=== PATIENT | male | born 1950 | race Caucasian/White ===

== ENCOUNTER → 2017-12-28 06:04 | Outpatient (CLI) | payer MEDICARE, BC, SELFPAY ==
--- NOTE | 2017-12-28 12:52 | STRESSREP ---
Stress Test Report Pharmacologic myocardial perfusion stress test. 67-year-old man with a history of coronary artery disease. Stress protocol: Resting EKG demonstrates normal sinus rhythm with rate of 73 bpm premature atrial complexes are noted. Resting blood pressure is 108/70 mmHg. 0.4 mg regadenoson was infused per usual protocol followed by rapid intravenous saline flush injection continuous EKG monitoring was performed. At rest there were no ST or T-wave changes noted suggest abnormal flow reserve at peak infusion no ST or T-wave changes were noted suggest abnormal flow reserve occasional premature ventricular complexes were noted. The maximum heart rate was 93 beats minute which was 60% maximum predicted heart rate the maximum workload attained was 1 metabolic equivalent. The resting blood pressure is 108/70 with a final blood pressure 118/70 mmHg. Myocardial perfusion protocol.: 14.8 mCi of technetium 99m sestamibi was injected at rest. 0.4 mg of regadenoson was infused per usual protocol peak infusion 44.9 mCi of technetium 99m sestamibi was injected stress images were obtained stress and rest images were reconstructed and compared in the short axis vertical long horizontal long axis. Gated images were also obtained Perfusion SPECT analysis: Review of the stress images demonstrate normal uptake of tracer noted in the septum anterior wall lateral and inferior wall. The apex has mildly reduced perfusion on the stress and rest images to a similar extent no areas of reversibility are noted suggest ischemia. Gated SPECT analysis: The gated ejection fraction is noted to be 66%. Conclusion: Normal pharmacologic myocardial perfusion stress test. Preserved ejection fraction.
== END ==
PROVIDERS: Family Provider Family Medicine; PCP Family Medicine; Visit Provider Physician Assistant Medical
DX: I25.10 Atherosclerotic heart disease of native coronary artery without angina pectoris (principal); I48.91 Unspecified atrial fibrillation
CPT/HCPCS: 78452; 93017; A9500; A4216; J2785

== ENCOUNTER → 2018-01-24 20:00 | Outpatient (CLI) | payer MEDICARE, BC, SELFPAY | PROVIDERS: Family Provider Family Medicine; PCP Family Medicine; Visit Provider Internal Medicine Cardiovascular Disease | DX: G47.10 Hypersomnia, unspecified (principal) | CPT/HCPCS: 95810 ==

== ENCOUNTER → 2018-02-21 21:06 | Outpatient (CLI) | payer MEDICARE, BC, SELFPAY | PROVIDERS: Family Provider Family Medicine; PCP Family Medicine; Visit Provider Nurse Practitioner Acute Care | DX: G47.33 Obstructive sleep apnea (adult) (pediatric) (principal) | CPT/HCPCS: 95811 ==

== ENCOUNTER → 2018-05-31 08:53 | Outpatient (CLI) | payer MEDICARE, BC, SELFPAY ==
[2018-05-31 10:52] LABS: Anion Gap 9 (5-15); BUN 19 mg/dL (7-18); BUN/Creat Ratio 16.1 RATIO (10-20); Calcium,Total 9.2 mg/dL (8.5-10.1); Chloride 108 mmol/L (98-107); Cholesterol 128 mg/dL (200); Creatinine, Serum 1.18 mg/dL (0.70-1.30); EST Glomerular Filtration Rate 65 mL/min (>60); Est Glom Filt Rate - Afr Amer 79 mL/min (>60); Glucose 91 mg/dL (74-106); High Density Lipoprotein 35 mg/dL; Potassium 4.2 mmol/L (3.5-5.1); Sodium Level 141 mmol/L (136-145); Triglycerides 70 mg/dL; Very Low Density Lipoprotein 14 mg/dL (5-40)
== END ==
PROVIDERS: Family Provider Family Medicine; PCP Family Medicine; Visit Provider Family Medicine
DX: E78.00 Pure hypercholesterolemia, unspecified (principal); I10 Essential (primary) hypertension
CPT/HCPCS: 36415; 80048; 80061

== ENCOUNTER → 2018-12-14 08:26 | Outpatient (CLI) | payer MEDICARE, BC, SELFPAY ==
[2018-11-07 08:07] VITALS: BMI 29.5
[2018-12-14 10:34] LABS: Anion Gap 9 (5-15); BUN 22 mg/dL (7-18); Chloride 107 mmol/L (98-107); Cholesterol 140 mg/dL (200); EST Glomerular Filtration Rate 71 mL/min (>60); Est Glom Filt Rate - Afr Amer 85 mL/min (>60); Glucose 93 mg/dL (74-106); High Density Lipoprotein 40 mg/dL; PSA,Total - Annual Screen 1.35 ng/mL (0.00-4.00); Potassium 4.3 mmol/L (3.5-5.1); Sodium Level 143 mmol/L (136-145); Triglycerides 73 mg/dL; Very Low Density Lipoprotein 15 mg/dL (5-40)
== END ==
PROVIDERS: Family Provider Family Medicine; PCP Family Medicine; Referring Provider Family Medicine; Visit Provider Family Medicine
DX: I10 Essential (primary) hypertension (principal); E78.5 Hyperlipidemia, unspecified; Z12.5 Encounter for screening for malignant neoplasm of prostate
CPT/HCPCS: 36415; 80048; 80061; 84153; G0103

== ENCOUNTER → 2019-06-13 08:43 | Outpatient (CLI) | payer MEDICARE, BC, SELFPAY ==
[2018-12-31 10:28] VITALS: BMI 28.8
[2019-06-13 10:51] LABS: Anion Gap 5 (5-15); BUN 17 mg/dL (7-18); BUN/Creat Ratio 14.7 RATIO (10-20); Calcium,Total 8.9 mg/dL (8.5-10.1); Chloride 106 mmol/L (98-107); Cholesterol 135 mg/dL (200); Creatinine, Serum 1.16 mg/dL (0.70-1.30); EST Glomerular Filtration Rate 66 mL/min (>60); Est Glom Filt Rate - Afr Amer 80 mL/min (>60); Glucose 101 mg/dL (74-106); High Density Lipoprotein 41 mg/dL; Potassium 4.5 mmol/L (3.5-5.1); Sodium Level 139 mmol/L (136-145); Triglycerides 68 mg/dL; Uric Acid 4.3 mg/dL (3.5-7.2); Very Low Density Lipoprotein 14 mg/dL (5-40)
== END ==
PROVIDERS: Family Provider Family Medicine; PCP Family Medicine; Referring Provider Family Medicine; Visit Provider Family Medicine
DX: I10 Essential (primary) hypertension (principal); E78.00 Pure hypercholesterolemia, unspecified; M10.9 Gout, unspecified
CPT/HCPCS: 36415; 80048; 80061; 84550

== ENCOUNTER → 2020-02-04 10:56 | Outpatient (CLI) | payer MEDICARE, BC, SELFPAY ==
[2020-01-09 11:00] VITALS: BMI 29.2
[2020-02-04 12:55] LABS: AST(SGOT) 13 U/L (15-37); Alanine Aminotransfer ALT/SGPT 22 U/L (16-61); Albumin, Serum 3.5 g/dL (3.2-5.0); Alkaline Phosphatase 78 U/L (45-117); Bilirubin, Direct 0.16 mg/dL (0.00-0.30); Cholesterol 153 mg/dL (200); Globulin 3.6 g/dL (2.2-4.2); High Density Lipoprotein 43 mg/dL; Protein, Total 7.1 g/dL (6.4-8.2); Triglycerides 61 mg/dL; Very Low Density Lipoprotein 12 mg/dL (5-40)
== END ==
PROVIDERS: PCP Family Medicine; Referring Provider Internal Medicine Cardiovascular Disease; Visit Provider Internal Medicine Cardiovascular Disease
DX: E78.00 Pure hypercholesterolemia, unspecified (principal)
CPT/HCPCS: 36415; 80061; 80076

== ENCOUNTER → 2020-04-07 14:34 | Outpatient (CLI) | payer MEDICARE, BC, SELFPAY ==
[2020-01-09 11:00] VITALS: BMI 29.2
[2020-04-07 18:15] LABS: Anion Gap 3 (5-15); BUN 22 mg/dL (7-18); Calcium,Total 9.2 mg/dL (8.5-10.1); Chloride 104 mmol/L (98-107); Creatinine, Serum 1.16 mg/dL (0.70-1.30); EST Glomerular Filtration Rate 66 mL/min (>60); Est Glom Filt Rate - Afr Amer 80 mL/min (>60); Glucose 80 mg/dL (74-106); PSA,Total - Annual Screen 2.49 ng/mL (0.00-4.00); Sodium Level 138 mmol/L (136-145)
== END ==
PROVIDERS: PCP Family Medicine; Referring Provider Family Medicine; Visit Provider Family Medicine
DX: I10 Essential (primary) hypertension (principal); Z12.5 Encounter for screening for malignant neoplasm of prostate
CPT/HCPCS: 36415; 80048; 84153; G0103

== ENCOUNTER → 2020-07-29 09:39 | Outpatient (CLI) | payer MEDICARE, BC, SELFPAY ==
[2020-05-06 11:23] VITALS: BMI 30.2
[2020-07-29 13:08] LABS: Anion Gap 4 (5-15); BUN 13 mg/dL (7-18); BUN/Creat Ratio 11.3 RATIO (10-20); Calcium,Total 9.1 mg/dL (8.5-10.1); Chloride 107 mmol/L (98-107); Creatinine, Serum 1.15 mg/dL (0.70-1.30); EST Glomerular Filtration Rate 67 mL/min (>60); Est Glom Filt Rate - Afr Amer 81 mL/min (>60); Glucose 100 mg/dL (74-106); PSA,Total- Diagnostic 0.88 ng/mL (0.0-4.0); Potassium 4.1 mmol/L (3.5-5.1); Sodium Level 140 mmol/L (136-145)
== END ==
PROVIDERS: PCP Family Medicine; Referring Provider Family Medicine; Visit Provider Family Medicine
DX: R97.20 Elevated prostate specific antigen [PSA] (principal); I10 Essential (primary) hypertension
CPT/HCPCS: 36415; 80048; 84153

== ENCOUNTER → 2021-01-26 09:58 | Outpatient (CLI) | payer MEDICARE, BC, SELFPAY ==
[2020-11-17 08:21] VITALS: BMI 30.1
[2021-01-26 12:35] LABS: ALB/GLOB Ratio 1.1 RATIO (0.9-2.4); AST(SGOT) 12 U/L (15-37); Alanine Aminotransfer ALT/SGPT 20 U/L (16-61); Albumin, Serum 3.7 g/dL (3.2-5.0); Alkaline Phosphatase 72 U/L (45-117); Anion Gap 4 (5-15); BUN 19 mg/dL (7-18); BUN/Creat Ratio 16.5 RATIO (10-20); Calcium,Total 9.1 mg/dL (8.5-10.1); Chloride 105 mmol/L (98-107); Creatinine, Serum 1.15 mg/dL (0.70-1.30); EST Glomerular Filtration Rate 67 mL/min (>60); Est Glom Filt Rate - Afr Amer 81 mL/min (>60); Globulin 3.5 g/dL (2.2-4.2); Glucose 97 mg/dL (74-106); Potassium 4.1 mmol/L (3.5-5.1); Protein, Total 7.2 g/dL (6.4-8.2); Sodium Level 138 mmol/L (136-145); Uric Acid 6.9 mg/dL (3.5-7.2)
== END ==
PROVIDERS: PCP Family Medicine; Referring Provider Family Medicine; Visit Provider Family Medicine
DX: I48.91 Unspecified atrial fibrillation (principal); M10.9 Gout, unspecified
CPT/HCPCS: 36415; 80053; 84550

== ENCOUNTER → 2021-02-10 08:16 | Outpatient (CLI) | payer MEDICARE, BC, SELFPAY ==
[2021-02-03 11:21] VITALS: BMI 30.6
[2021-02-10 10:59] LABS: AST(SGOT) 12 U/L (15-37); Alanine Aminotransfer ALT/SGPT 18 U/L (16-61); Albumin, Serum 3.4 g/dL (3.2-5.0); Alkaline Phosphatase 70 U/L (45-117); Bilirubin, Direct 0.19 mg/dL (0.00-0.30); Cholesterol 140 mg/dL (200); Globulin 3.2 g/dL (2.2-4.2); High Density Lipoprotein 44 mg/dL; Protein, Total 6.6 g/dL (6.4-8.2); Triglycerides 63 mg/dL; Very Low Density Lipoprotein 13 mg/dL (5-40)
== END ==
PROVIDERS: PCP Family Medicine; Referring Provider Family Medicine; Visit Provider Internal Medicine Cardiovascular Disease
DX: E78.00 Pure hypercholesterolemia, unspecified (principal)
CPT/HCPCS: 36415; 80061; 80076

== ENCOUNTER → 2021-08-05 10:03 | Outpatient (CLI) | payer MEDICARE, BC, SELFPAY ==
[2021-08-05 12:36] LABS: AST(SGOT) 10 U/L (15-37); Alanine Aminotransfer ALT/SGPT 17 U/L (16-61); Albumin, Serum 3.5 g/dL (3.2-5.0); Alkaline Phosphatase 72 U/L (45-117); Bilirubin, Direct 0.24 mg/dL (0.00-0.30); Cholesterol 144 mg/dL (200); High Density Lipoprotein 44 mg/dL; Protein, Total 7.5 g/dL (6.4-8.2); Triglycerides 71 mg/dL; Very Low Density Lipoprotein 14 mg/dL (5-40)
== END ==
PROVIDERS: PCP Internal Medicine Cardiovascular Disease; Referring Provider Internal Medicine Cardiovascular Disease; Visit Provider Internal Medicine Cardiovascular Disease
DX: E78.00 Pure hypercholesterolemia, unspecified (principal)
CPT/HCPCS: 36415; 80061; 80076

== ENCOUNTER → 2022-06-10 | Outpatient (CLI) | payer MEDICARE, BC, SELFPAY ==
[2022-06-10 13:14] LABS: AST(SGOT) 10 U/L (15-37); Alanine Aminotransfer ALT/SGPT 16 U/L (16-61); Albumin, Serum 3.6 g/dL (3.2-5.0); Alkaline Phosphatase 78 U/L (45-117); Anion Gap 8 (5-15); BUN 15 mg/dL (7-18); BUN/Creat Ratio 12.5 RATIO (10-20); Bilirubin, Direct 0.22 mg/dL (0.00-0.30); Calcium,Total 9.6 mg/dL (8.5-10.1); Chloride 105 mmol/L (98-107); Cholesterol 132 mg/dL (200); EST Glomerular Filtration Rate 63 mL/min (>60); Est Glom Filt Rate - Afr Amer 77 mL/min (>60); Globulin 3.8 g/dL (2.2-4.2); Glucose 98 mg/dL (74-106); High Density Lipoprotein 42 mg/dL; Potassium 4.2 mmol/L (3.5-5.1); Protein, Total 7.4 g/dL (6.4-8.2); Sodium Level 142 mmol/L (136-145); Triglycerides 90 mg/dL; Very Low Density Lipoprotein 18 mg/dL (5-40)
== END | disposition home or self-care (01) ==
LOC: MFPLAB 10:46
PROVIDERS: PCP Internal Medicine Cardiovascular Disease; Referring Provider Internal Medicine Cardiovascular Disease; Visit Provider Internal Medicine Cardiovascular Disease
DX: I11.0 Hypertensive heart disease with heart failure (principal); I43 Cardiomyopathy in diseases classified elsewhere; I50.22 Chronic systolic (congestive) heart failure; I48.0 Paroxysmal atrial fibrillation; E78.00 Pure hypercholesterolemia, unspecified; Z98.890 Other specified postprocedural states
CPT/HCPCS: 36415; 80048; 80061; 80076

== ENCOUNTER → 2022-08-19 | Outpatient (CLI) | payer MEDICARE, BC, SELFPAY ==
--- NOTE | 2022-08-19 10:30 | RAD_ITS ---
INDICATION: COUGH EXAMINATION/TECHNIQUE: X-RAY - XR Chest 2 Views COMPARISON: Chest radiograph 12/02/2015. FINDINGS: Support devices: A loop recorder projects over the left heart border. Chronic emphysematous changes. There are some patchy right lower lobe opacities. No sizable pleural effusion or pneumothorax. Cardiomediastinal silhouette is within normal limits. No acute findings in the bones or soft tissues. RAD/Chest PA and Lateral IMPRESSION: 1. Right lower lobe pneumonia and/or atelectasis. 2. Chronic emphysematous changes. Electronically Signed: Marlon Kirby, at 13:14 EST ,
[2022-08-19 11:43] LABS: Absolute Lymphocyte Count 0.99 X10^3/uL (0.83-4.51); Basophil# 0.04 X10^3/uL; Basophil% 0.7 % (0-1); Eosinophil# 0.06 X10^3/uL; Eosinophils% 1.1 % (0-5); Hematocrit 45.9 % (40-54); Lymphocyte # 0.99 X10^3/ul (0.83-4.51); Lymphocyte % 17.4 % (19-41); Mean Corp Hgb Conc 32.7 g/dL (32-36); Mean Corpuscular Hgb 31.6 pg (27.0-32.0); Mean Corpuscular Volume 96.6 fL (80-94); Monocyte# 0.59 X10^3/uL; Monocyte% 10.4 % (0-10); NRBC Flagged by Analyzer 0 % (0-5); Neutrophil # 3.99 X10^3/uL (2.7-7.7); Neutrophil % 70.2 % (47-70); Platelet Count 220 K/mm3 (150-450); RBC Distribution Width CV 12.4 % (11.6-14.6); RBC Distribution Width SD 44.7 fl (35.1-43.9); Red Blood Count 4.75 M/mm3 (4.6-6.2); White Blood Count 5.7 K/mm3 (4.4-11.0)
[2022-08-19 11:56] LABS: Anion Gap 7 (5-15); BUN 11 mg/dL (7-18); BUN/Creat Ratio 10.5 RATIO (10-20); Calcium,Total 9.3 mg/dL (8.5-10.1); Chloride 103 mmol/L (98-107); Creatinine, Serum 1.05 mg/dL (0.70-1.30); EST Glomerular Filtration Rate 74 mL/min (>60); Est Glom Filt Rate - Afr Amer 89 mL/min (>60); Glucose 95 mg/dL (74-106); Potassium 4.3 mmol/L (3.5-5.1); Sodium Level 139 mmol/L (136-145)
== END | disposition home or self-care (01) ==
LOC: MTLAB 10:17
PROVIDERS: PCP Family Medicine; Referring Provider Family Medicine; Visit Provider Family Medicine
DX: R05.9 Cough, unspecified (principal)
CPT/HCPCS: 36415; 71046; 80048; 85025

== ENCOUNTER → 2022-12-05 | Outpatient (CLI) | payer MEDICARE, BC, SELFPAY ==
[2022-12-05 12:53] LABS: AST(SGOT) 10 U/L (15-37); Alanine Aminotransfer ALT/SGPT 13 U/L (16-61); Albumin, Serum 3.7 g/dL (3.2-5.0); Alkaline Phosphatase 70 U/L (45-117); Bilirubin, Direct 0.36 mg/dL (0.00-0.30); Cholesterol 133 mg/dL (200); Globulin 3.3 g/dL (2.2-4.2); High Density Lipoprotein 39 mg/dL; Triglycerides 94 mg/dL; Very Low Density Lipoprotein 19 mg/dL (5-40)
== END | disposition home or self-care (01) ==
PROVIDERS: PCP Family Medicine; Visit Provider Internal Medicine Cardiovascular Disease
DX: E78.00 Pure hypercholesterolemia, unspecified (principal)
CPT/HCPCS: 36415; 80061; 80076

== ENCOUNTER 2023-02-07 11:31 | Outpatient (CLI) | payer MEDICARE, BC, SELFPAY ==
[2023-02-07 15:59] LABS: ALB/GLOB Ratio 1.1 RATIO (0.9-2.4); AST(SGOT) 13 U/L (15-37); Alanine Aminotransfer ALT/SGPT 20 U/L (16-61); Albumin, Serum 3.5 g/dL (3.2-5.0); Alkaline Phosphatase 67 U/L (45-117); Anion Gap 4 (5-15); BUN 14 mg/dL (7-18); BUN/Creat Ratio 14.3 RATIO (10-20); Calcium,Total 8.8 mg/dL (8.5-10.1); Chloride 109 mmol/L (98-107); Creatinine, Serum 0.98 mg/dL (0.70-1.30); EST Glomerular Filtration Rate 80 mL/min (>60); Est Glom Filt Rate - Afr Amer 96 mL/min (>60); Globulin 3.1 g/dL (2.2-4.2); Glucose 89 mg/dL (74-106); Potassium 4.1 mmol/L (3.5-5.1); Protein, Total 6.6 g/dL (6.4-8.2); Sodium Level 140 mmol/L (136-145); Uric Acid 7.2 mg/dL (3.5-7.2)
== END 2023-02-07 23:59 | disposition home or self-care (01) ==
PROVIDERS: PCP Family Medicine; Visit Provider Family Medicine
DX: Z79.899 Other long term (current) drug therapy (principal); I42.9 Cardiomyopathy, unspecified; I48.91 Unspecified atrial fibrillation; M10.9 Gout, unspecified
CPT/HCPCS: 36415; 80053; 82306; 83735; 84550

== ENCOUNTER 2023-05-31 16:19 | Inpatient (IN) | payer MEDICARE, BC, SELFPAY ==
[2023-05-31] VITALS (12 sets, daily range): BP systolic 120–151; BP diastolic 70–102; PULSE 71–82; RESP 15–82; TEMP 36.4–36.9; O2SAT 20–99; BMI 29.9; BMI 29.1
--- NOTE | 2023-05-31 17:39 | EDS_ITS ---
HPI History of Present Illness Chief Complaint: Abn Labs Informant: patient Onset/Context/Timing Onset: Weeks Context: Gradual Onset Timing: Intermittent Quality: Winded Location: Generalized Worsened by: Exertion Relieved by: Rest Narrative Narrative: Patient presents with shortness of breath with exertion that has been getting worse over the past few weeks. Patient states he feels winded after going up a flight of steps and with doing yard work. Patient states it is better with rest. Patient states he had an appointment with his director energy nurse practitioner today and had blood work done. Patient states he was told to come to the emergency department because his blood counts were very low and his bilirubin was high. Patient states he checked his blood pressure at home this morning it was 104/54. Patient states he has been having some diarrhea but denies any melena or hematochezia. Patient admits to some subjective chills. Patient states he is on Eliquis for A-fib. [facility] Medical History (Updated 05/31/23 @ 21:[address] Ruperto Hoskins, DO) Abnormal cardiac enzyme level Alcohol abuse Atrial fibrillation Bilateral enlargement of atria Cardiomyopathy in other diseases classified elsewhere Dyspnea Dyspnea Encounter for long-term current use of high risk medication Essential hypertension Fatigue Gout Hemoptysis Hyperlipidemia Hypertension Low HDL (under 40) Nicotine abuse Nonrheumatic aortic valve regurgitation Nonrheumatic mitral valve regurgitation SRINIVASA (obstructive sleep apnea) SRINIVASA treated with BiPAP Paroxysmal atrial fibrillation Pleural effusion Pure hypercholesterolemia Renal insufficiency Shock Systolic congestive heart failure Weakness Home Medications furosemide 20 mg tablet 20 mg PO .COMPLEX #45 tabs 08/05/22 [Rx Last Taken Unknown] metoprolol succinate 25 mg tablet,extended release 24 hr 12.5 mg (1/2 x 25 mg) PO DAILY #45 tabs 09/04/22 [Rx Last Taken Unknown] atorvastatin 10 mg tablet 10 mg PO QHS #90 tabs 09/05/22 [Rx Last Taken Unknown] magnesium oxide 400 mg (241.3 mg magnesium) tablet See Rx Instructions .Route .COMPLEX #90 tabs 01/31/23 [Rx Last Taken Unknown] rivaroxaban 20 mg tablet 20 mg PO DAILY #30 tabs 04/24/23 [Rx Last Taken Unknown] Allergy/AdvReac Type Severity Reaction Status Date / Time Iodinated Contrast Media Allergy Hives Verified 05/31/23 16:19 [CONTRASTS] clarithromycin [From Biaxin] AdvReac Unknown Unknown Verified 05/31/23 16:19 amoxicillin AdvReac Diarrhea Verified 05/31/23 16:19 Family History Mother Cancer Father Myocardial infarction Heart disease Surgical History History of cataract surgery History of loop recorder History of radiofrequency ablation procedure for cardiac arrhythmia (~09/29/17) History of tonsillectomy Status post ablation of atrial fibrillation (~09/29/17) Social History household members: spouse housing: house pets and animals: Yes pets and animals: cat(s) and dog(s) Smoking Status: Former smoker quit date: 09/25/14 pack-years: 43 second hand exposure: No alcohol intake: never substance use type: does not use caffeine: Yes Type: coffee Number of servings: 3 what type of physical activity do you participate in: none seatbelt use: always do you feel safe at home: Yes ROS ROS ED Constitutional Constitutional ED: Reports chills and subjective; Denies fever(s) Eyes Eyes: Denies blurry vision or change in vision ENT ENT ED: Denies rhinorrhea or sore throat Cardiovascular Cardiovascular: Denies chest pain or palpitations Respiratory/Chest Respiratory/Chest: Reports dyspnea and dyspnea on exertion; Denies cough Gastrointestinal Gastrointestinal: Reports diarrhea; Denies nausea or vomiting Genitourinary Genitourinary ED: Denies dysuria or hematuria Musculoskeletal Musculoskeletal: Denies back pain or neck pain Integumentary Denies abscess or rash Neurologic Neurologic: Denies headache(s) or weakness Allergic/Immunologic Allergic/Immunologic ED: Denies mouth swelling or urticaria EXAM Physical Exam Const Vital Signs: 05/31/23 16:20 05/31/23 17:19 05/31/23 18:19 Temperature 97.9 F Temperature Source Temporal Pulse Rate 71 71 Respiratory Rate 18 19 H Respiratory Effort Normal Non-Labored Respiratory Pattern Normal Blood Pressure 138/102 H Blood Pressure Mean 114 Pulse Ox 98 94 Oxygen Delivery Method Room Air Room Air 05/31/23 19:27 Temperature Temperature Source Pulse Rate 77 Respiratory Rate 19 H Respiratory Effort Respiratory Pattern Blood Pressure 120/84 H Blood Pressure Mean 96 Pulse Ox 99 Oxygen Delivery Method Room Air Positive well nourished and well developed General Appearance ED: well developed and NAD HEENT Reports moist mucous membranes Neck supple and no JVD Resp normal respiratory effort and clear to auscultation bilaterally Cardio regular rate Rhythm: abnormal rhythm ectopic beats GI non-tender and non-distended Palpation: soft Extremity normal to inspection Neuro oriented x3, CN's II-XII intact bilaterally and no sensory deficits noted Sensorium / Orientation: alert Motor Exam: strength 5/5 throughout Psych mental status grossly normal MDM MDM MDM Narrative Medical decision making narrative: Differential diagnosis includes anemia, cardiac dysrhythmia, cardiac ischemia, pulmonary embolism, hepatic disease, and gastrointestinal bleeding. CBC will be obtained to assess for leukocytosis and anemia. Comprehensive metabolic profile will be obtained to assess for hepatic function, renal function, and electrolyte abnormality. High-sensitivity troponin will be obtained to assess for cardiac ischemia. D-dimer will be obtained to assess for pulmonary embolism. PT with INR and PTT will be obtained to assess for coagulopathy. Stool for occult blood will be obtained to assess for occult GI bleed. History & Record Review Discussion w/independent historian: Patient and Family Additional record(s) reviewed:: Prior labs Lab Data Attestation: I reviewed the patient's lab results. Lab results narrative: CBC was reviewed. Hemoglobin is 6.0. This is decreased from earlier today when it was 7.2. MCV was elevated at 150, MCH was elevated at 57.7, MCHC was elevated at 38.5, RDW was elevated at 116.6. Platelets were normal. PT with INR and PTT were reviewed and were within normal limits. D-dimer was reviewed and was normal at 0.49. Basic metabolic profile was reviewed and was essentially within normal limits. Hepatic profile was reviewed. Total bilirubin was elevated at 8.6. Direct bilirubin was slightly elevated at 0.52. AST, ALT, and alkaline phosphatase are within normal limits. Lipase was reviewed and was normal at 31. Urinalysis was reviewed. Occult blood was 10. Urine bilirubin was 1. Urobilinogen was 4. Blood type was reviewed and was O+. Antibody screen was negative. Labs: Laboratory Results - last 24 hr 05/31/23 05/31/23 17:58 19:40 WBC 10.1 RBC 1.04 L Hgb 6.0 L* Hct 15.6 L MCV 150.0 H MCH 57.7 H MCHC 38.5 H RDW Std Deviation 116.6 H RDW Coeff of [place] 21.3 H Plt Count 320 MPV 9.7 Immature Gran % (Auto) 1.100 H Neut % (Auto) 64.9 Lymph % (Auto) 20.0 B[place] % (Auto) 10.0 Eos % (Auto) 2.8 Baso % (Auto) 1.2 H Absolute Neuts (auto) 6.6 Absolute Lymphs (auto) 2.02 Nucleated RBC % 5.3 H Differential Comment SCANNED Diff Path Review May foll Polychromasia 2+ Hypochromasia 2+ Anisocytosis 2+ Macrocytosis 1+ Target Cells RARE PT 14.6 INR 1.1 APTT 27.8 D-Dimer Quant (PE/DVT) 0.49 Sodium 140 Potassium 4.0 Chloride 109 H Carbon Dioxide 25.0 Anion Gap 6 BUN 21 H Creatinine 1.27 Estim Creat Clear Calc 53.49 Est GFR (MDRD) Af Amer 71 Est GFR (MDRD) Non-Af 59 L BUN/Creatinine Ratio 16.5 Glucose 87 Calcium 8.5 Total Bilirubin 8.60 H Direct Bilirubin 0.52 H AST 33 ALT 13 L Alkaline Phosphatase 79 Total Protein 6.6 Albumin 3.6 Globulin 3.0 Lipase 31 Urine Color Any Urine Clarity Clear Urine pH 7.0 Ur Specific [place] 1.010 Urine Protein 15 H Urine Glucose (UA) Normal Urine Ketones Negative Urine Occult Blood 10 H Urine Nitrite Negative Urine Bilirubin 1 H Urine Urobilinogen 4 H Ur Leukocyte Esterase 25 H Urine RBC 0-5 SEEN Urine WBC 0-5 SEEN Ur Squamous Epith Cells 0 SEEN Urine Bacteria 0 SEEN Urine Mucus 0 SEEN Blood Type O POSITIVE Antibody Screen NEGATIVE Crossmatch See Detail EKG Initial EKG: Attestation: I personally reviewed and interpreted this EKG as follows: Interpretation: Sinus Rhythm (With recurrent ectopics with a rate of 74) and No Acute Injury Pattern Comments: EKG was obtained. On my independent interpretation, it showed a normal sinus rhythm with frequent PACs and PVCs with a rate of 74. UT interval, QRS interval, and QTc intervals were all normal. There is left axis deviation at -31. There are no acute ST or T wave changes. This is unchanged compared to previous EKGs from earlier today and also from 06/08/2022. Prior EKG tracings: available for review Prior: Unchanged (Earlier today and 06/08/2022) Management Discussion w/another healthcare provider: Hospitalist and Brim Stretcher Treatment and Re-Evaluation :: Patient was typed and crossed for 2 units of blood. Case was discussed with the hospitalist. She recommended contacting hematology oncology for consultation. Dr. Landers was paged. He is agreeable with keeping the patient here. He recommended adding on a Anny test. This was ordered. Patient is agreeable to admission. All questions were answered. Discharge Plan Triage Chief Complaint: Abn Labs ED Provider: Ruperto Hoskins Dx/Rx/DC Orders Clinical Impression: Hemolytic anemia, Essential hypertension, Hyperbilirubinemia Prescriptions: No Action furosemide 20 mg tablet 20 mg PO .COMPLEX Qty: 45 3RF Rx Instructions: 20 mg PO every other day; metoprolol succinate 25 mg tablet extended release 24 hr 12.5 mg PO DAILY Qty: 45 3RF atorvastatin 10 mg tablet 10 mg PO QHS Qty: 90 3RF magnesium oxide 400 mg (241.3 mg magnesium) tablet See Rx Instructions .ROUTE .COMPLEX Qty: 90 3RF Dose Instruction: take 1 tablet by mouth once daily Rx Instructions: take 1 tablet by mouth once daily rivaroxaban 20 mg tablet 20 mg PO DAILY Qty: 30 11RF Primary Care Provider: Care Physician,No Primary Referrals: Care Physician,No Primary [Primary Care Provider] - Disposition Disposition: Acute Care Hospital [facility]
--- NOTE | 2023-05-31 17:45 | EKG12_ITS ---
Test Reason : Blood Pressure : / mmHG Vent. Rate : 074 BPM Atrial Rate : 074 BPM P-R Int : 152 ms QRS Dur : 092 ms QT Int : 400 ms P-R-T Axes : 073 -31 036 degrees QTc Int : 444 ms Sinus rhythm with Premature supraventricular complexes and with occasional Premature ventricular comp lexes Left axis deviation Low voltage QRS Abnormal ECG Confirmed by GILBERTO ROLDAN, SHARLENE ([id number]), design editor ARIK FRY ([id number]) on 06/02/2023 1:53:53 PM Referred By: Confirmed By:SHARLENE MACIAS MD
[2023-05-31 18:27] LABS: International Normalized Ratio 1.1; Partial Thromboplast Time 27.8 Seconds (24.1-36.2); Prothrombin Time (Protime)PT. 14.6 SECONDS (11.7-14.9)
[2023-05-31 18:32] LABS: AST(SGOT) 33 U/L (15-37); Alanine Aminotransfer ALT/SGPT 13 U/L (16-61); Albumin, Serum 3.6 g/dL (3.2-5.0); Alkaline Phosphatase 79 U/L (45-117); Anion Gap 6 (5-15); BUN 21 mg/dL (7-18); BUN/Creat Ratio 16.5 RATIO (10-20); Bilirubin, Direct 0.52 mg/dL (0.00-0.30); Calcium,Total 8.5 mg/dL (8.5-10.1); Chloride 109 mmol/L (98-107); Creatinine, Serum 1.27 mg/dL (0.70-1.30); EST Glomerular Filtration Rate 59 mL/min (>60); Est Glom Filt Rate - Afr Amer 71 mL/min (>60); Estimated Creatinine Clearance 53.49 ml/min; Glucose 87 mg/dL (74-106); Lipase 31 U/L (13-75); Protein, Total 6.6 g/dL (6.4-8.2); Sodium Level 140 mmol/L (136-145)
[2023-05-31 18:38] LABS: D-Dimer Quantitative (DVT/PE) 0.49 FEU/ug/m (0.27-0.49)
[2023-05-31 19:04] LABS: Absolute Lymphocyte Count 2.02 X10^3/uL (0.83-4.51); Absolute Neutrophil Count 6.6 X10^3/uL (2.0-7.7); Basophil# 0.12 X10^3/uL; Basophil% 1.2 % (0-1); Eosinophil# 0.28 X10^3/uL; Eosinophils% 2.8 % (0-5); Hematocrit 15.6 % (40-54); Lymphocyte # 2.02 X10^3/ul (0.83-4.51); Mean Platelet Vol. 9.7 fl (6.2-12.0); Monocyte# 1.01 X10^3/uL; NRBC Flagged by Analyzer 5.3 % (0-5); Neutrophil # 6.57 X10^3/uL (2.7-7.7); Neutrophil % 64.9 % (47-70); POSITIVE COUNT YES; POSITIVE MORPHOLOGY YES; Platelet Count 320 K/mm3 (150-450); RBC Distribution Width CV 21.3 % (11.6-14.6); Red Blood Count 1.04 M/mm3 (4.6-6.2); White Blood Count 10.1 K/mm3 (4.4-11.0)
[2023-05-31 19:36] LABS: RBC Distribution Width SD 116.6 fl (35.1-43.9)
[2023-05-31 19:38] LABS: Mean Corp Hgb Conc 38.5 g/dL (32-36); Mean Corpuscular Hgb 57.7 pg (27.0-32.0)
[2023-05-31 19:39] LABS: Differential Indicated SCAN CRITERIA MET
[2023-05-31 19:40] LABS: Differential Comment SCANNED
[2023-05-31 19:41] LABS: Hypochromasia 2+; Macrocytosis 1+; Polychromasia 2+
[2023-05-31 19:42] LABS: Anisocytosis 2+; Target Cells RARE
[2023-05-31 19:48] LABS: Bacteria 0 SEEN /hpf (None Seen); Mucous, Urine 0 SEEN /hpf (<or=2+); Squamous Epithelial Cells - UA 0 SEEN /hpf (0-5)
[2023-05-31 19:49] LABS: Color, Urine Amber (Yellow); Glucose, Dipstick Normal (Normal); Ketone-Dipstick Negative (Negative); Leukocyte Esterase-Dipstick 25 /ul (Negative); Nitrite-Dipstick Negative (Negative); Occult Blood-Urine 10 /ul (Negative); Protein-Dipstick 15 mg/dl (Negative); Urine Clarity Clear (Clear); Urine Urobilinogen 4 mg/dl (Normal)
[2023-05-31 19:52] LABS: Urine Bilirubin Dipstick 1 mg/dL (Negative)
[2023-05-31 19:57] LABS: Red Blood Cells-Urine 0-5 SEEN /hpf (0-5); White Blood Cells 0-5 SEEN /hpf (0-5)
--- NOTE | 2023-05-31 20:25 | US_ITS ---
STUDY: ABDOMINAL ULTRASOUND - RIGHT UPPER QUADRANT REASON FOR VISIT: Male, 73 years old Hyperbilirubinemia TECHNIQUE: Ultrasound evaluation of the right upper quadrant was performed with real-time and static figueroa-scale imaging. TECHNICAL QUALITY: Limited. Examination limited by bowel gas. COMPARISON: None. FINDINGS: Liver: The liver measures 16.7 cm. There is normal echogenicity of the liver. The bile ducts are within normal limits. There is hepatic color flow. The direction of portal flow is hepatopetal. There is no demonstrated mass lesion. Gallbladder: Normal distended gallbladder. The gallbladder wall measures 2.0 mm. There is a negative sonographic Villanueva''s sign. There is no pericholecystic fluid. There are no gallstones. Common Bile Duct (C.B.D.): The common bile duct measures 6.0 mm. Pancreas: Normal size of the body with head and tail of the pancreas being obscured. There is normal echogenicity of the visualized pancreas. There is no demonstrated pancreatic mass or cyst in the visualized portion. Right Kidney: Normal size of the right kidney. The right kidney measures 9.5 x 4.3 x 5.4 cm. Normal renal cortex. The right cortex measures 1.2 cm. Within the right kidney there is a round anechoic structure measuring 1.0 x 1.0 x 0.9 cm consistent with a simple cyst. There is no right hydronephrosis. US/Gallbladder IMPRESSION: Small cyst within the right kidney measuring 1.0 cm. Remainder of the right upper quadrant ultrasound unremarkable. Electronically Signed: Shweta Lew MD at 22:15 EDT ,
--- NOTE | 2023-05-31 20:26 | PCM.HP.STD ---
HPI - General General Date of Admission: 05/31/23 Date of Service: 05/31/23 Chief Complaint: Abnormal labs, dyspnea, fatigue. HPI Narrative The patient is a 73 y/o M w/ PMHx: Obesity, SRINIVASA on BiPAP 09/08, HLD, HTN, PAF s/p EPS/RFA 03/2017 and 09/[address] Mccullough at [facility], Hx NSWCT/NSVT s/p loop recorder 06/2016, Hx DVT/PE, Hx EtOH abuse, Former tobacco use, Non-CAD related Cardiomyopathy/HFrEF who presents to the [facility] ED on 05/31/23 with history of recent Cardiology visit on day of ED presentation with denied LH/dizziness/near syncopal/syncope events, weight gain/increased edema but blood pressures over the last several days were reported during visit as low in addition to complaint of dyspnea worse with exertion prompting BNP/CBC with diff/Mag/TSH/ECHO/CMP to be obtained eventually resulted as notable abnormal with elevated T bili and notable anemia prompting ED evaluation referral. The patient does report recent mild diarrhea but denies any melena or hematochezia with subjective chills but no fevers. He has been compliant with his NOAC for atrial fibrillation. He eyes any recent night sweats or weight loss. He does feel as though the dyspnea may be started approximately over the last 4 weeks but was more severe in the last several days. Work-up in the ED included T97.9, heart rate 71, BP 138/102 with most recent repeat 120/84, respiratory rate 18, 98% on room air, CBC with WBC 10.1, hemoglobin 6.0, MCV 150, platelet 320 with increased immature granulocytes, unremarkable coags, D-dimer 0.49, CMP with chloride 109, BUN/creatinine 21/1.27, total bilirubin 8.60, direct bilirubin 0.52, AST/LT 33/13, hepatic profile not marked otherwise, lipase 31, stool guaiac negative, EKG with sinus rhythm with frequent PAC/PVC with no acute evidence of ischemia unchanged from earlier in the day. Discussed concerns with ED physician and he will contact [facility] prior to admission consideration given suspicion possible hemolysis as etiology pending work-up as noted and Dr. Landers was agreeable. [facility] Medical History (Updated 05/31/23 @ 21:[address] Ariela Gaston MD) Atrial fibrillation Bilateral enlargement of atria Cardiomyopathy in other diseases classified elsewhere Essential hypertension Former tobacco use Gout History of alcohol abuse Hyperlipidemia Hypertension Low HDL (under 40) Nonrheumatic aortic valve regurgitation Nonrheumatic mitral valve regurgitation SRINIVASA (obstructive sleep apnea) Paroxysmal atrial fibrillation Systolic congestive heart failure Home Medications furosemide 20 mg tablet 20 mg PO .COMPLEX #45 tabs 08/05/22 [Rx Last Taken Unknown] metoprolol succinate 25 mg tablet,extended release 24 hr 12.5 mg (1/2 x 25 mg) PO DAILY #45 tabs 09/04/22 [Rx Last Taken Unknown] atorvastatin 10 mg tablet 10 mg PO QHS #90 tabs 09/05/22 [Rx Last Taken Unknown] magnesium oxide 400 mg (241.3 mg magnesium) tablet See Rx Instructions .Route .COMPLEX #90 tabs 01/31/23 [Rx Last Taken Unknown] rivaroxaban 20 mg tablet 20 mg PO DAILY #30 tabs 04/24/23 [Rx Last Taken Unknown] Allergy/AdvReac Type Severity Reaction Status Date / Time Iodinated Contrast Media Allergy Hives Verified 05/31/23 16:19 [CONTRASTS] clarithromycin [From Biaxin] AdvReac Unknown Unknown Verified 05/31/23 16:19 amoxicillin AdvReac Diarrhea Verified 05/31/23 16:19 Family History Mother Cancer Father Myocardial infarction Heart disease Surgical History History of cataract surgery History of loop recorder History of radiofrequency ablation procedure for cardiac arrhythmia (~09/29/17) History of tonsillectomy Status post ablation of atrial fibrillation (~09/29/17) Social History household members: spouse housing: house pets and animals: Yes pets and animals: cat(s) and dog(s) Smoking Status: Former smoker quit date: 09/25/14 pack-years: 43 second hand exposure: No alcohol intake: never substance use type: does not use caffeine: Yes Type: coffee Number of servings: 3 what type of physical activity do you participate in: none seatbelt use: always do you feel safe at home: Yes ROS ROS Narrative Admission Review of Systems: CONSTITUTIONAL: No weight loss, fever, + subjective chills, weakness or fatigue. HEENT: Eyes: No visual loss, blurred vision, double vision or yellow sclerae. Ears, Nose, Throat: No hearing loss, sneezing, congestion, runny nose or sore throat. SKIN: No rash or itching, lesions, wounds. CARDIOVASCULAR: No chest pain, chest pressure or chest discomfort, palpitations, edema, orthopnea, syncopal events. RESPIRATORY: + shortness of breath, No cough or sputum, wheezing, hemoptysis. GASTROINTESTINAL: No anorexia, nausea, vomiting or diarrhea, abdominal pain, melena, BRBPR. GENITOURINARY: No dysuria, frequency, urgency or retention. NEUROLOGICAL: No headache, dizziness, syncope, paralysis, ataxia, numbness or tingling in the extremities, focal weakness, change in bowel or bladder control, seizure. MUSCULOSKELETAL: + muscle, back pain, joint pain or stiffness. HEMATOLOGIC: + anemia, easy bleeding or bruising. LYMPHATICS: No enlarged nodes. No history of splenectomy. PSYCHIATRIC: No history of depression or anxiety. ENDOCRINOLOGIC: No reports of sweating, cold or heat intolerance. No polyuria or polydipsia. ALLERGIES: + history of hives. Vital Signs Vital Signs Vital Signs: 05/31/23 16:20 05/31/23 17:19 05/31/23 18:19 Temperature 97.9 F Temperature Source Temporal Pulse Rate 71 71 Respiratory Rate 18 19 H Respiratory Effort Normal Non-Labored Respiratory Pattern Normal Blood Pressure 138/102 H Blood Pressure Mean 114 Pulse Ox 98 94 Oxygen Delivery Method Room Air Room Air 05/31/23 19:27 Temperature Temperature Source Pulse Rate 77 Respiratory Rate 19 H Respiratory Effort Respiratory Pattern Blood Pressure 120/84 H Blood Pressure Mean 96 Pulse Ox 99 Oxygen Delivery Method Room Air Weight Weight: 208 lb 4.8 oz Body Mass Index (BMI) 29.9 Physical Exam Narrative Physical Examination: General: Awake, alert, oriented x 3 and cooperative, seated upright in the ED bed in no apparent distress, notes feeling well aside from dyspnea when he exerts himself. Skin: Normal color, normal turgor, no icterus, no cyanosis except occasional staged ecchymoses to the extremities. HEENT: AT/NC, EOMI, PERRLA, mildly dry MM, no carotid bruits or JVD noted. Lungs: Mildly diminished, greater bases, proper effort, no rales, ronchi or wheezing. Heart: Currently regular rate and rhythm; no gallop, rub audible. Abdomen: Soft, NTTP, ND, mildly hyperactive BS, no appreciated HSM. Extremities: No cyanosis, clubbing, or edema. Neurological: Patient awake, alert, oriented as noted, cognitive function intact; pupils equally reactive to light and accommodation, cranial nerves II-XII grossly normal, moving all 4 extremities, no focal deficits, strength moderately global decrease secondary to acute presentation. Psychiatric: Affect appears mildly fatigued otherwise normal, no acute evidence of depressive or anxiety feelings. Results Lab / Micro Data 05/31/23 17:58 05/31/23 17:58 Labs: Laboratory Results - last 24 hr 05/31/23 17:58: WBC 10.1, RBC 1.04 L, Hgb 6.0 L*, Hct 15.6 L, MCV 150.0 H, MCH 57.7 H, MCHC 38.5 H, RDW Std Deviation 116.6 H, RDW Coeff of [place] 21.3 H, Plt Count 320, MPV 9.7, Immature Gran % (Auto) 1.100 H, Neut % (Auto) 64.9, Lymph % (Auto) 20.0, [place] % (Auto) 10.0, Eos % (Auto) 2.8, Baso % (Auto) 1.2 H, Absolute Neuts (auto) 6.6, Absolute Lymphs (auto) 2.02, Nucleated RBC % 5.3 H, Differential Comment SCANNED, Diff Path Review May foll, Polychromasia 2+, Hypochromasia 2+, Anisocytosis 2+, Macrocytosis 1+, Target Cells RARE, PT 14.6, INR 1.1, APTT 27.8, D-Dimer Quant (PE/DVT) 0.49, Sodium 140, Potassium 4.0, Chloride 109 H, Carbon Dioxide 25.0, Anion Gap 6, BUN 21 H, Creatinine 1.27, Estim Creat Clear Calc 53.49, Est GFR (MDRD) Af Amer 71, Est GFR (MDRD) Non-Af 59 L, BUN/Creatinine Ratio 16.5, Glucose 87, Calcium 8.5, Total Bilirubin 8.60 H, Direct Bilirubin 0.52 H, AST 33, ALT 13 L, Alkaline Phosphatase 79, Total Protein 6.6, Albumin 3.6, Globulin 3.0, Lipase 31, Blood Type O POSITIVE, Antibody Screen NEGATIVE 05/31/23 19:40: Urine Color Any, Urine Clarity Clear, Urine pH 7.0, Ur Specific [place] 1.010, Urine Protein 15 H, Urine Glucose (UA) Normal, Urine Ketones Negative, Urine Occult Blood 10 H, Urine Nitrite Negative, Urine Bilirubin 1 H, Urine Urobilinogen 4 H, Ur Leukocyte Esterase 25 H, Urine RBC 0-5 SEEN, Urine WBC 0-5 SEEN, Ur Squamous Epith Cells 0 SEEN, Urine Bacteria 0 SEEN, Urine Mucus 0 SEEN Micro: Microbiology 05/31/23 18:46 Stool Stool Occult Blood (KIYA) - Final Assessment & Plan Assessment/Plan (1) Anemia: (2) Hyperbilirubinemia: PLAN: Plan The patient is a 73 y/o M w/ PMHx: Obesity, SRINIVASA on BiPAP 09/08, HLD, HTN, PAF s/p EPS/RFA 03/2017 and 09/[address] Mccullough at [facility], Hx NSWCT/NSVT s/p loop recorder 06/2016, Hx DVT/PE, Hx EtOH abuse, Former tobacco use, Non-CAD related Cardiomyopathy/HFrEF who presents to the [facility] ED on 05/31/23 with history of recent Cardiology visit on day of ED presentation with denied LH/dizziness/near syncopal/syncope events, weight gain/increased edema but blood pressures over the last several days were reported during visit as low in addition to complaint of dyspnea worse with exertion prompting BNP/CBC with diff/Mag/TSH/ECHO/CMP to be obtained eventually resulted as notable abnormal with elevated T bili and notable anemia prompting ED evaluation referral. #1. Acute Anemia, macrocytic, possibly blood loss with Acute GI Bleed however guiac initially negative but also on NOAC however concern given concurrent #2 Possible Hemolysis versus ineffective erythropoesis: Admission Hgb 6.0, earlier in the day 7.2, last prior to this was 08/19/22 15.0 with baseline 14-15 before this timeline, reports stools normal appearing thus unclear if potentially hematological but still need to assure no GI bleed component especially given NOAC usage. Will admit to PCU, will continue ED initiated PRBC administration x 2 unit with serial HH following, will obtain Fe panel/ferritin/vitamin b12/folic acid, will maintain on IV PPI, last liver imaging noted 09/09/15 with normal liver at that time; however, now noted concurrent elevated T bili, GB US requested and until assure no cirrhosis especially since chart reported history of EtOH abuse will also place on IV rocephin but again less suspicion for bleed but to be cautious until certain, will obtain will obtain CK, aldolase, dino, GGT, retic count/smear, LDH and haptoglobin, will hold NOAC, GI consulted and pending. Hematology consulted and pending, allow clears with NPO status at midnight although again less suspicion for GI bleed as noted. #2. Hyperbilirubinemia, Total/Direct: Admission total bilirubin 8.60, direct bilirubin 0.52, from review of chart has been trending upward, 06/10/22 T bili 1.30->12/05/22 T bili 2.0->02/07/23 T bili 1.90->05/31/23 earlier in the day T bili 8.20 and now current, D-bili prior normal until 12/05/22 with D-bili 0.36 and current 0.52, unclear etiology, last imaging as noted 2014 not marked at that time, will obtain GBUS, will trend hepatic profile, pending hepatitis panel, given normal AST/ALT concern for hemolysis/ineffective erythropoiesis given acute anemia concurrently with negative guiac thus will obtain will obtain CK, aldolase, GGT, retic count/smear, LDH and haptoglobin. May also pending findings and results need MRCP. GI consulted and pending. Hematology consulted and pending. #3. PAF: s/p EPS/RFA 03/2017 and 09/[address] Mccullough at [facility], will continue metoprolol as BP allows, holding NOAC given presentation as noted. #4. Non-CAD related Cardiomyopathy/HFrEF: Last echo noted in system from outside facility [facility] 09/29/2017 echocardiogram with no LA, NAE or RA thrombus or spontaneous contrast, normal LV size and systolic function, normal RV, no significant valve disease, a patent peña ovale is not demonstrated by agitated saline contrast. Holding NOAC and statin given acute presentation as noted #1/#2, continue metoprolol and Lasix as BP allows, judicious hydration if necessary. To be cautious maintaining on telemetry, cycling cardiac enzymes and will check mag given dyspnea complaints although likely related primarily with #1. #5. Hypertension: Continue home regimen including metoprolol, Lasix, PRN hydralazine. #6. Hyperlipidemia: Although AST/ALT not altered to be cautious we will temporally hold while ascertaining etiology for hyperbilirubinemia as noted above. #7. SRINIVASA: Following with pulmonary medicine, from most recent visit note will continue BiPAP 09/08. #8. Obesity: Weight loss and lifestyle changes encouraged. #9. Hx NSWCT/NSVT: s/p loop recorder 06/2016. #10. Hx DVT/PE: As noted holding NOAC given acute anemia. #11. Former tobacco use: Encourage continued tobacco cessation. #10. DVT prophylaxis: SCDs, holding NOAC as noted. #11. CODE status: Patient ANGELINA is his who is present and living will is currently in place. Discussed CODE status at length including difference between FULL code, DNR-CCA and DNR-CC status. Following discussions about the differences in these status, requested Full Code status. Advanced Care Planning Face to Face Time: 16 minutes. Charges/Coding Visit Charges Inpatient E&M: 44480 Init Hosp L3 Procedures Hospitalists Procedures: [id number] Advncd Care Plan 30 Min
[2023-05-31 21:13] LABS: CPK Total, Creatine Kinase 81 U/L (39-308); Ferritin 167 ng/mL (26-388); GGTP 14 U/L (15-85); Iron 229 ug/dL (65-175); Iron Binding Capacity,Total 272 ug/dL (250-450); LDH 689 U/L (87-241); Magnesium 2.3 mg/dL (1.6-2.6); PERCENT IRON SATURATION 84.2 % (15.0-55.0)
[2023-05-31 21:25] LABS: Platelet Count 324 K/mm3 (150-450); RET-HE 42.7 pg (30-35); Reticulocyte Count 27.54 % (0.5-1.5)
[2023-05-31 21:56] LABS: Hepatitis B Surface Antibody Reactive; Hepatitis B Surface Antigen Non-Reactive (Nonreactive); Hepatitis C Antibody Non-Reactive (Nonreactive); Vitamin B12 245 pg/mL (211-911)
[2023-05-31 23:05] LABS: Troponin-I HS 15 pg/mL (3.0-78.0)
[2023-06-01] VITALS (13 sets, daily range): BP systolic 111–138; BP diastolic 72–79; PULSE 69–79; RESP 14–20; TEMP 36.1–37.3; O2SAT 90–100
[2023-06-01] MEDS: 0.9% Normal Saline 1,000 ML 75 ML IV (00:09)
[2023-06-01] MEDS: Ceftriaxone 1 GM/50 ML BAG IV ×2 (00:31→22:14)
[2023-06-01 01:04] LABS: Troponin-I HS 16 pg/mL (3.0-78.0)
[2023-06-01 05:48] LABS: AST(SGOT) 27 U/L (15-37); Alanine Aminotransfer ALT/SGPT 11 U/L (16-61); Albumin, Serum 3.2 g/dL (3.2-5.0); Alkaline Phosphatase 71 U/L (45-117); Anion Gap 7 (5-15); BUN 18 mg/dL (7-18); BUN/Creat Ratio 17.6 RATIO (10-20); Bilirubin, Direct 0.51 mg/dL (0.00-0.30); Chloride 110 mmol/L (98-107); Creatinine, Serum 1.02 mg/dL (0.70-1.30); EST Glomerular Filtration Rate 76 mL/min (>60); Est Glom Filt Rate - Afr Amer 92 mL/min (>60); Globulin 2.6 g/dL (2.2-4.2); Glucose 89 mg/dL (74-106); Protein, Total 5.8 g/dL (6.4-8.2); Sodium Level 140 mmol/L (136-145); Troponin-I HS 17 pg/mL (3.0-78.0)
[2023-06-01 05:50] LABS: Absolute Lymphocyte Count 1.58 X10^3/uL (0.83-4.51); Absolute Neutrophil Count 6.1 X10^3/uL (2.0-7.7); Basophil# 0.11 X10^3/uL; Basophil% 1.2 % (0-1); Eosinophil# 0.41 X10^3/uL; Eosinophils% 4.5 % (0-5); Hematocrit 21.7 % (40-54); Hemoglobin 7.9 g/dL (13.0-16.5); Lymphocyte # 1.58 X10^3/ul (0.83-4.51); Lymphocyte % 17.4 % (19-41); Mean Corp Hgb Conc 36.4 g/dL (32-36); Mean Corpuscular Hgb 48.2 pg (27.0-32.0); Mean Corpuscular Volume 132.3 fL (80-94); Mean Platelet Vol. 9.7 fl (6.2-12.0); Monocyte# 0.89 X10^3/uL; Monocyte% 9.8 % (0-10); NRBC Flagged by Analyzer 3.6 % (0-5); Neutrophil # 6.05 X10^3/uL (2.7-7.7); Neutrophil % 66.4 % (47-70); POSITIVE MORPHOLOGY YES; Platelet Count 278 K/mm3 (150-450); Red Blood Count 1.64 M/mm3 (4.6-6.2); White Blood Count 9.1 K/mm3 (4.4-11.0)
[2023-06-01 05:52] LABS: Differential Indicated SCAN CRITERIA MET
[2023-06-01 06:29] LABS: Macrocytosis 2+; Polychromasia 2+
[2023-06-01 06:30] LABS: Hypochromasia 1+
--- NOTE | 2023-06-01 08:55 | PCM.PN.HOSP ---
Reason for Visit Reason for Visit: Diagnoses Anemia, unspecified (05/31/23) Other disorders of bilirubin metabolism (05/31/23) Objective Data Objective Data Vital Signs: Vital Signs Temp Pulse Resp BP Pulse Ox O2 Del Method O2 Flow Rate 97.5 F L 71 18 111/73 94 Nasal Cannula 2 06/01/23 03:57 06/01/23 03:57 06/01/23 03:57 06/01/23 03:57 06/01/23 03:57 06/01/23 05:07 06/01/23 05:07 Oxygen Flow Rate (L/min) 2 Oxygen Delivery Method Nasal Cannula Weight: 203 lb 4.259 oz Body Mass Index (BMI) 29.1 Intake & Output: Intake and Output for Last 24 Hours 05/30/23 05/31/23 06/01/23 23:59 23:59 23:59 Intake Total 0 / 240 400 / 400 Output Total 300 / 300 Balance 0 / 240 100 / 100 Lab / Micro Data 06/01/23 09:25 06/01/23 05:10 Labs: Laboratory Results - last 24 hr 05/31/23 17:58: WBC 10.1, RBC 1.04 L, Hgb 6.0 L*, Hct 15.6 L, MCV 150.0 H, MCH 57.7 H, MCHC 38.5 H, RDW Std Deviation 116.6 H, RDW Coeff of [place] 21.3 H, Plt Count 320, MPV 9.7, Immature Gran % (Auto) 1.100 H, Neut % (Auto) 64.9, Lymph % (Auto) 20.0, [place] % (Auto) 10.0, Eos % (Auto) 2.8, Baso % (Auto) 1.2 H, Absolute Neuts (auto) 6.6, Absolute Lymphs (auto) 2.02, Nucleated RBC % 5.3 H, Differential Comment SCANNED, Diff Path Review May foll, Polychromasia 2+, Hypochromasia 2+, Anisocytosis 2+, Macrocytosis 1+, Target Cells RARE, Retic Count 27.54 H, Immature Retic Fraction 46.30 H, Retic Hgb Equivalent 42.7 H, PT 14.6, INR 1.1, APTT 27.8, D-Dimer Quant (PE/DVT) 0.49, Sodium 140, Potassium 4.0, Chloride 109 H, Carbon Dioxide 25.0, Anion Gap 6, BUN 21 H, Creatinine 1.27, Estim Creat Clear Calc 53.49, Est GFR (MDRD) Af Amer 71, Est GFR (MDRD) Non-Af 59 L, BUN/Creatinine Ratio 16.5, Glucose 87, Calcium 8.5, Magnesium 2.3, Iron 229 H, TIBC 272, Iron Saturation 84.2 H, Ferritin 167, Total Bilirubin 8.60 H, Direct Bilirubin 0.52 H, GGT 14 L, AST 33, ALT 13 L, Alkaline Phosphatase 79, Lactate Dehydrogenase 689 H, Total Creatine Kinase 81, Total Protein 6.6, Albumin 3.6, Globulin 3.0, Lipase 31, Folate 9.10, Blood Type O POSITIVE, Antibody Screen NEGATIVE, Antibody Identification TNP, Direct Antiglob Test POS w/POLYSPECIFIC H, Crossmatch See Detail 05/31/23 19:40: Urine Color Any, Urine Clarity Clear, Urine pH 7.0, Ur Specific [place] 1.010, Urine Protein 15 H, Urine Glucose (UA) Normal, Urine Ketones Negative, Urine Occult Blood 10 H, Urine Nitrite Negative, Urine Bilirubin 1 H, Urine Urobilinogen 4 H, Ur Leukocyte Esterase 25 H, Urine RBC 0-5 SEEN, Urine WBC 0-5 SEEN, Ur Squamous Epith Cells 0 SEEN, Urine Bacteria 0 SEEN, Urine Mucus 0 SEEN 05/31/23 20:34: Vitamin B12 245, Hep Bs Antigen Non-Reactive, Hep Bs Antibody Reactive, Hepatitis C Antibody Non-Reactive, Miscellaneous Test Cancelled 05/31/23 22:40: Troponin I High Sens 15 06/01/23 00:38: Troponin I High Sens 16 06/01/23 05:10: WBC 9.1, RBC 1.64 L, Hgb 7.9 L, Hct 21.7 L, MCV 132.3 H D, MCH 48.2 H, MCHC 36.4 H D, RDW Std Deviation Not Reportable, RDW Coeff of [place]ore[place] Not Reportable, Plt Count 278, MPV 9.7, Immature Gran % (Auto) 0.700, Neut % (Auto) 66.4, Lymph % (Auto) 17.4 L, [place] % (Auto) 9.8, Eos % (Auto) 4.5, Baso % (Auto) 1.2 H, Absolute Neuts (auto) 6.1, Absolute Lymphs (auto) 1.58, Nucleated RBC % 3.6, Polychromasia 2+, Hypochromasia 1+, Macrocytosis 2+, Sodium 140, Potassium 4.0, Chloride 110 H, Carbon Dioxide 23.0, Anion Gap 7, BUN 18, Creatinine 1.02, Estim Creat Clear Calc 66.60, Est GFR (MDRD) Af Amer 92, Est GFR (MDRD) Non-Af 76, BUN/Creatinine Ratio 17.6, Glucose 89, Calcium 8.0 L, Total Bilirubin 7.40 H, Direct Bilirubin 0.51 H, AST 27, ALT 11 L, Alkaline Phosphatase 71, Troponin I High Sens 17, Total Protein 5.8 L, Albumin 3.2, Globulin 2.6 Micro: Microbiology 05/31/23 18:46 Stool Stool Occult Blood (KIYA) - Final Radiography Diagnostic Testing: Radiology Impression Gallbladder Ultrasound 05/31/23 20:25 IMPRESSION: Small cyst within the right kidney measuring 1.0 cm. Remainder of the right upper quadrant ultrasound unremarkable. Electronically Signed: Shweta Lew MD at 22:15 EDT Reading Location ID and State: [address] [place] [address] , Service support , Assessment & Plan Assessment/Plan (1) Anemia: QUALIFIERS: Anemia type: acquired or hereditary hemolytic anemia Hemolytic anemia type: acquired, other Qualified Code(s): D59.8 - Other acquired hemolytic anemias (2) Hyperbilirubinemia: PLAN: Plan The patient is a 73 y/o M was sent to ED from cardiology office after blood work showed high bilirubin and low hemoglobin 6.0, last hemoglobin was 15.0 on 08/19/2022. Patient also had shortness of breath gets winded on climbing 1 flight of steps and doing yard work. At home her BP was 100/54. #1. Acute Anemia, macrocytic, possibly blood loss with Acute GI Bleed: Stool for guaiac test was negative. Patient is on DOAC. Units PRBC transfusion given. GI consulted. Repeat hemoglobin 7.9. RDW high 21.3. MCV 150, MCH MCHC all high. Reticulocyte count 27.5%, immature 46.3, haptoglobin pending raising suspicion for hemolysis/hemolytic anemia/spherocytosis. Office Messenger Helper is consulted. Folate, TSH and B12 normal. #2. 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 Admitted with TB 8.6, direct 0.5 therefore mainly indirect hyperbilirubinemia raising suspicion of hemolytic anemia. Transaminases, ALT low. Serum iron high at 229, TIBC normal, iron saturation high 84.2%. UA shows bilirubinemia, urobilinogen and LE 25. Hepatitis panel hep B surface antibody reactive. LDH 689 high. CK normal. Serial troponins normal. Direct antiglobulin test/Anny test positive. Discussed with folding machine feeder Dr. Landers and agree with the diagnosis of hemolytic anemia probably WAHA. Started on prednisone 1 mg/kg body weight, 90 mg daily first dose now. The patient not on usual medication which might have precipitated hemolytic anemia. Did not have any recent antibiotic. #3. PAF: s/p EPS/RFA 03/2017 and 09/[address] Mccullough at [facility], will continue metoprolol as BP allows, holding NOAC given presentation as noted. #4. Non-CAD related Cardiomyopathy/HFrEF: Last echo noted in system from outside facility [facility] 09/29/2017 echocardiogram with no LA, NAE or RA thrombus or spontaneous contrast, normal LV size and systolic function, normal RV, no significant valve disease, a patent peña ovale is not demonstrated by agitated saline contrast. Holding NOAC and statin given acute presentation as noted #1/#2, continue metoprolol and Lasix as BP allows, judicious hydration if necessary. To be cautious maintaining on telemetry, cycling cardiac enzymes and will check mag given dyspnea complaints although likely related primarily with #1. #5. Hypertension: Continue home regimen including metoprolol, Lasix, PRN hydralazine. #6. Hyperlipidemia: Although AST/ALT not altered to be cautious we will temporally hold while ascertaining etiology for hyperbilirubinemia as noted above. #7. SRINIVASA: Following with pulmonary medicine, from most recent visit note will continue BiPAP 09/08. #8. Obesity: Weight loss and lifestyle changes encouraged. #9. Hx NSWCT/NSVT: s/p loop recorder 06/2016. Battery life is . #10. Hx DVT/PE: As noted holding NOAC given acute anemia. #11. Former tobacco use: Encourage continued tobacco cessation. #10. DVT prophylaxis: SCDs, holding NOAC as noted. #11. CODE status: Patient ANGELINA is his who is present and living will is currently in place. Discussed CODE status at length including difference between FULL code, DNR-CCA and DNR-CC status. Following discussions about the differences in these status, requested Full Code status. Total time of the visit including total time spent in counseling or coordination of care, (more than 50% of the total time, spent in obtaining medical information from nurses and other ancillary care providers,explaining to the patient about labs, imaging, diagnosis and management of active complex medical conditions), discussion with wealth management consultant folding machine feeder and GI, management of active complex medical condition, review of labs and imaging and clinical update given to patient's family including his son and [id number] and present to the is 45 minutes.
[2023-06-01] MEDS: Metoprolol(XL)Succ 25 MG Tablet 12.5 MG PO (09:09)
[2023-06-01] MEDS: Furosemide 20 MG Tablet PO (09:10)
[2023-06-01 09:46] LABS: Hematocrit 25.6 % (40-54); Hemoglobin 9.2 g/dL (13.0-16.5)
--- NOTE | 2023-06-01 12:05 | CASEMGMT ---
Addendum entered by Radha Harper 06/01/23 14:08: Patient reported to JOHNNA ACOSTA that he has a PCP (Tamir) but is considering changing providers. RN KARLA gave provider list to patient for his review. Radha FALLON, RN, CM Original Note: JOHNNA ACOSTA Face to Face with patient for initial transition planning/care coordination assessment patient's , Vikki, and his son, Melchor, also at the bedside per patient's permission. JOHNNA ACOSTA introduced self and role at [facility]. Patient lying in bed, alert and oriented. Patient willing to participate in assessment and is able to answer all questions appropriately.? Care providers, pharmacy, and demographics verified. Patient wishes to discharge home, denies need for home health at this time.? Patient states he has no further needs or concerns at this time. CM to follow for discharge planning needs that may arise. PCP:Tamir at [facility] Specialists:Hourly Sales Staff (Nancy), Pulmonolgist (Rene) Preferred [facility]acy:[facility] Insurance:Medicare Part A & B Prescription Benefit:?Yes Living Will/HPOA:Yes/Yes; , Vikki Madden, is HCPOA LNOK: and son, Melchor Living Arrangements:Lives in a two story home with his . 3 steps to enter w/railing, and 14 steps w/railing to second floor. Laundry and showers are on second floor. Ambulates steps with no difficulty and is independent in all ADLs and IADLs. Transportation:Self and DME:[employer], BIPAP, and walker (this is in basement and can be used if ever needed) HHC:Denies previous SNF and HHC Disposition Plan:Patient to discharge home with family support and follow-up plans in place. Radha FALLON, RN, CM
--- NOTE | 2023-06-01 12:08 | CHAPLAIN ---
Type of Pastoral Visit _x__ Initial Visit ___ Follow-up Visit ___ On-call Visit ___ General Patient Visit ___ Spiritual Assessment ___ Family Conference ___ Bereavement ___ Rapid Response ___ Code Blue ___ Other (describe below) Pastoral Care Referral From _x__ Patient _x__ Family ___ Nurse ___ Physician ___ Hospitality Internship ___ Client Support Administrator ___ Other (describe below) Sacrament/Intervention _x__ Active listening ___ Anointing ___ Confucianism ___ Bereavement ___ Communion _x__ Nahomy exploration ___ ___ Life review _x__ Prayer ___ Reconciliation ___ Sacrament of Sick _x__ Supportive presence ___ Wedding ___ Other (describe below) Pastoral Comments patient has several family members with him in the room; spouse explains situation as waiting on answers with questions about possibilities of even cancer; pt admits to some anxiety and desiring to just find it what it is; time given to listen to concerns; pt has young grandson and wants to be available; pt and spouse identify themselves as Rastafari believers although not active in a particular latter-day at this time; both seek prayer support; offer of ongoing support is given
[2023-06-01 13:22] LABS: Pathologist Review Reviewed
[2023-06-01] MEDS: predniSONE 20 MG Tablet 90 MG PO (14:28)
--- NOTE | 2023-06-01 15:34 | CASEMGMT ---
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 Documents are not on file at [facility]. SW let patient know these documents are not on file at [facility] and to bring in a copy when able. Diana OCHOA
--- NOTE | 2023-06-01 16:53 | CON.PCM.ON_ITS ---
Assessment & Plan Assessment/Plan (1) AIHA (autoimmune hemolytic anemia): Status: Acute Code(s): D59.10 - Autoimmune hemolytic anemia, unspecified Plan: To start prednisone 1 mg/kg with folic acid 1 mg/day and iron 325 mg daily. He can be discharged when stable and follow-up in [facility]. HPI Consult Data Date of Service:: 06/01/23 PCP / Referring Provider: No Primary Care Phys Attending: Dr. Edy Gordon MD Chief Complaint Chief Complaint: Asked to see the patient for hemolytic anemia. History of Present Illness History of Present Illness: 73-year-old man presented with shortness of breath, was found to have low hemoglobin and high bilirubin level. Sent to the emergency room for admission. He was found to have hemolytic anemia, CHECO was positive, transfused 2 units packed RBCs. This morning he feels much better shortness of breath is less than before. Advanced Directives Power of Ambulatory Care Nurse: Yes Living Will: Yes [facility] Medical History (Updated 06/01/23 @ 17:[address] Pedro Landers MD) Atrial fibrillation Bilateral enlargement of atria Cardiomyopathy in other diseases classified elsewhere Essential hypertension Former tobacco use Gout History of alcohol abuse Hyperlipidemia Hypertension Low HDL (under 40) Nonrheumatic aortic valve regurgitation Nonrheumatic mitral valve regurgitation SRINIVASA (obstructive sleep apnea) Paroxysmal atrial fibrillation Systolic congestive heart failure Home Medications furosemide 20 mg tablet 20 mg PO .COMPLEX #45 tabs 08/05/22 [Rx Last Taken Unknown] metoprolol succinate 25 mg tablet,extended release 24 hr 12.5 mg (1/2 x 25 mg) PO DAILY #45 tabs 09/04/22 [Rx Last Taken Unknown] atorvastatin 10 mg tablet 10 mg PO QHS #90 tabs 09/05/22 [Rx Last Taken Unknown] magnesium oxide 400 mg (241.3 mg magnesium) tablet See Rx Instructions .Route .COMPLEX #90 tabs 01/31/23 [Rx Last Taken Unknown] rivaroxaban 20 mg tablet 20 mg PO DAILY #30 tabs 04/24/23 [Rx Last Taken Unknown] Allergy/AdvReac Type Severity Reaction Status Date / Time Iodinated Contrast Media Allergy Hives Verified 05/31/23 16:19 [CONTRASTS] clarithromycin [From Biaxin] AdvReac Unknown Unknown Verified 05/31/23 16:19 amoxicillin AdvReac Diarrhea Verified 05/31/23 16:19 Family History Mother Cancer Father Myocardial infarction Heart disease Surgical History History of cataract surgery History of loop recorder History of radiofrequency ablation procedure for cardiac arrhythmia (~09/29/17) History of tonsillectomy Status post ablation of atrial fibrillation (~09/29/17) Social History household members: spouse housing: house pets and animals: Yes pets and animals: cat(s) and dog(s) Smoking Status: Former smoker quit date: 09/25/14 pack-years: 43 second hand exposure: No alcohol intake: never substance use type: does not use caffeine: Yes Type: coffee Number of servings: 3 what type of physical activity do you participate in: none seatbelt use: always do you feel safe at home: Yes Physical Exam Narrative Elderly man Const alert, oriented x3 and no apparent distress HEENT normocephalic Eyes Eyes Narrative: + Jaundice Sclera: sclera abnormal Positive for bilateral Lymph Lymphatic: no lymphadenopathy noted Chest inspection of chest normal Resp normal respiratory effort and clear to auscultation bilaterally Cardio S1 normal heart sound and S2 normal heart sound GI normal to inspection, nondistended, normoactive bowel sounds Extremity normal to inspection and no clubbing, cyanosis or edema Skin no wounds Neuro CN's II-XII intact bilaterally Vital Signs Temperature 97.6 F L 06/01/23 13:00 Temperature Source Temporal 06/01/23 13:00 Pulse Rate 72 06/01/23 13:00 Respiratory Rate 14 06/01/23 13:00 Respiratory Effort Normal, Non-Labored 06/01/23 05:07 Respiratory Depth Normal 06/01/23 05:07 Respiratory Pattern Normal 06/01/23 05:07 Blood Pressure 133/75 H 06/01/23 13:00 Blood Pressure Mean 94 06/01/23 13:00 Blood Pressure Source Monitor 06/01/23 13:00 Blood Pressure Position Sitting 06/01/23 13:00 Blood Pressure Location Right Arm 06/01/23 13:00 Pulse Ox 96 06/01/23 14:10 Oxygen Delivery Method Room Air 06/01/23 14:10 Oxygen Flow Rate (L/min) 2 06/01/23 08:57 Laboratory Results - last 24 hr 05/31/23 17:58: WBC 10.1, RBC 1.04 L, Hgb 6.0 L*, Hct 15.6 L, MCV 150.0 H, MCH 57.7 H, MCHC 38.5 H, RDW Std Deviation 116.6 H, RDW Coeff of Lorena 21.3 H, Plt Count 320, MPV 9.7, Immature Gran % (Auto) 1.100 H, Neut % (Auto) 64.9, Lymph % (Auto) 20.0, Wilkinson % (Auto) 10.0, Eos % (Auto) 2.8, Baso % (Auto) 1.2 H, Absolute Neuts (auto) 6.6, Absolute Lymphs (auto) 2.02, Nucleated RBC % 5.3 H, Differential Comment SCANNED, Diff Path Review Reviewed, Polychromasia 2+, Hypochromasia 2+, Anisocytosis 2+, Macrocytosis 1+, Target Cells RARE, Retic Count 27.54 H, Immature Retic Fraction 46.30 H, Retic Hgb Equivalent 42.7 H, PT 14.6, INR 1.1, APTT 27.8, D-Dimer Quant (PE/DVT) 0.49, Sodium 140, Potassium 4.0, Chloride 109 H, Carbon Dioxide 25.0, Anion Gap 6, BUN 21 H, Creatinine 1.27, Estim Creat Clear Calc 53.49, Est GFR (MDRD) Af Amer 71, Est GFR (MDRD) Non-Af 59 L, BUN/Creatinine Ratio 16.5, Glucose 87, Calcium 8.5, Magnesium 2.3, Iron 229 H, TIBC 272, Iron Saturation 84.2 H, Ferritin 167, Total Bilirubin 8.60 H, Direct Bilirubin 0.52 H, GGT 14 L, AST 33, ALT 13 L, Alkaline Phosphatase 79, Lactate Dehydrogenase 689 H, Total Creatine Kinase 81, Total Protein 6.6, Albumin 3.6, Globulin 3.0, Lipase 31, Folate 9.10, Blood Type O POSITIVE, Antibody Screen NEGATIVE, Antibody Identification TNP, Direct Antiglob Test POS w/POLYSPECIFIC H, Crossmatch See Detail 05/31/23 19:40: Urine Color Any, Urine Clarity Clear, Urine pH 7.0, Ur Specific [place] 1.010, Urine Protein 15 H, Urine Glucose (UA) Normal, Urine Ketones Negative, Urine Occult Blood 10 H, Urine Nitrite Negative, Urine Bilirubin 1 H, Urine Urobilinogen 4 H, Ur Leukocyte Esterase 25 H, Urine RBC 0-5 SEEN, Urine WBC 0-5 SEEN, Ur Squamous Epith Cells 0 SEEN, Urine Bacteria 0 SEEN, Urine Mucus 0 SEEN 05/31/23 20:34: Vitamin B12 245, Hep Bs Antigen Non-Reactive, Hep Bs Antibody Reactive, Hepatitis C Antibody Non-Reactive, Miscellaneous Test Cancelled 05/31/23 22:40: Troponin I High Sens 15 06/01/23 00:38: Troponin I High Sens 16 06/01/23 05:10: WBC 9.1, RBC 1.64 L, Hgb 7.9 L, Hct 21.7 L, MCV 132.3 H D, MCH 48.2 H, MCHC 36.4 H D, RDW Std Deviation Not Reportable, RDW Coeff of Lorena Not Reportable, Plt Count 278, MPV 9.7, Immature Gran % (Auto) 0.700, Neut % (Auto) 66.4, Lymph % (Auto) 17.4 L, Wilkinson % (Auto) 9.8, Eos % (Auto) 4.5, Baso % (Auto) 1.2 H, Absolute Neuts (auto) 6.1, Absolute Lymphs (auto) 1.58, Nucleated RBC % 3.6, Polychromasia 2+, Hypochromasia 1+, Macrocytosis 2+, Sodium 140, Potassium 4.0, Chloride 110 H, Carbon Dioxide 23.0, Anion Gap 7, BUN 18, Creatinine 1.02, Estim Creat Clear Calc 66.60, Est GFR (MDRD) Af Amer 92, Est GFR (MDRD) Non-Af 76, BUN/Creatinine Ratio 17.6, Glucose 89, Calcium 8.0 L, Total Bilirubin 7.40 H , Direct Bilirubin 0.51 H, AST 27, ALT 11 L, Alkaline Phosphatase 71, Troponin I High Sens 17, Total Protein 5.8 L, Albumin 3.2, Globulin 2.6 06/01/23 09:25: Hgb 9.2 L, Hct 25.6 L Microbiology 05/31/23 18:46 Stool Stool Occult Blood (KIYA) - Final Diagnostic Data Gallbladder Ultrasound 05/31/23 20:25 IMPRESSION: Small cyst within the right kidney measuring 1.0 cm. Remainder of the right upper quadrant ultrasound unremarkable. Electronically Signed: Shweta Lew MD at 22:15 EDT , Charges/Coding Visit Charges Office Visits / Consults: 02103 IP Consult L3
[2023-06-01] MEDS: 0.9% Saline Lock 10 ML Syringe IV (21:17)
--- NOTE | 2023-06-01 23:33 | NURSING ---
Pt states he just doesn't feel right. Vs obtained. all within normal range. pt denies any shortness of breath or itching. states the feeling came on this evening. SCD's removed per request.
[2023-06-02 04:28] VITALS: BP 113/69; PULSE 101; RESP 18; TEMP 36.5; O2SAT 94
[2023-06-02 05:56] VITALS: BMI 29.5
[2023-06-02 08:16] VITALS: O2SAT 97
--- NOTE | 2023-06-02 08:34 | PCM.DC ---
Discharge Instructions Diet Discharge Diet: No restrictions Activity Discharge Activity: Return to Normal Activity Weight Bearing Status: Weight bearing as tolerated Dressing / Incision Call your doctor if you observe: Fever of 101 or Higher, Coldness, Increased Pain, Numbness or Tingling, Change in Color, Inability to urinate, Inability to have a bowel movement, Shortness of breath, Dizziness, Fainting spells, Swelling in the ankles, Chest pain, Prolonged hiccupping, Increased palpitations (irregular heartbeat) and Calf discomfort Follow Up Care When: IN 2 WEEKS Test Results: Test results from this visit will be discussed in further detail at your follow-up appointment, if applicable. Discharge Plan Admission Admit Date/Time: 05/31/23 20:12 Primary Reason for Your Visit: Autoimmune hemolytic anemia Attending Provider: Edy Gordon Primary Care Provider: Care Physician,No Primary Consulting Providers: Anastacio Givens; Pedro Landers; Atilio Larson; Calos Kimble; Adrian Duong; Genaro Betancourt; Dick Degroot; Nicki Lawson NP; Ariela Gaston Instructions Additional Instructions / Restrictions: CBC in 1 week and follow-up in hematology clinic/PCP Discharge Orders/Prescriptions Prescriptions: New prednisone 20 mg Tablet 90 mg PO BREAKFAST 14 Days Qty: 63 0RF pantoprazole 40 mg Tablet,Delayed Release (Dr/Ec) 40 mg PO DAILY 30 Days Qty: 30 1RF ferrous sulfate [FeroSul] 325 mg (65 mg iron) tablet 325 mg PO DAILY Qty: 30 2RF folic acid 1 mg tablet 1 mg PO DAILY Qty: 30 2RF ascorbic acid (vitamin C) 500 mg tablet 500 mg PO BID Qty: 60 2RF Continued furosemide 20 mg tablet 20 mg PO .COMPLEX Qty: 45 3RF Rx Instructions: 20 mg PO every other day; metoprolol succinate 25 mg tablet extended release 24 hr 12.5 mg PO DAILY Qty: 45 3RF atorvastatin 10 mg tablet 10 mg PO QHS Qty: 90 3RF magnesium oxide 400 mg (241.3 mg magnesium) tablet See Rx Instructions .ROUTE .COMPLEX Qty: 90 3RF Dose Instruction: take 1 tablet by mouth once daily Rx Instructions: take 1 tablet by mouth once daily Held rivaroxaban 20 mg tablet 20 mg PO DAILY Qty: 30 11RF Hold Instructions: Repeat CBC in 1 week and decide about rivaroxaban after that Referrals / Follow Up: Ama Lerma MD [Med Staff - Active Staff] - Within 1 Week (Follow-up CBC in 1 week and decide about rivaroxaban) Pedro Landers MD [Med Staff - Active Staff] - Within 2 Weeks (Taper prednisone dose for hemolytic anemia.) Care Physician,No Primary [Primary Care Provider] - Disposition Disposition (needs filled in before D/C Order can be placed): Home, Self Care
[2023-06-02 08:52] VITALS: BP 120/73; PULSE 72; RESP 14; TEMP 36.8; O2SAT 97
[2023-06-02] MEDS: predniSONE 20 MG Tablet 90 MG PO (08:54)
[2023-06-02 08:55] VITALS: PULSE 72
[2023-06-02] MEDS: Metoprolol(XL)Succ 25 MG Tablet 12.5 MG PO (08:55)
--- NOTE | 2023-06-02 10:03 | DS.PCM_ITS ---
Providers Date of Admission: 05/31/23 Date of Discharge: 06/02/23 Primary Care Physician: Sherita Primary Care Phys Consultations 05/31/23 22:16 Consult: Oncology/Hematology Routine Consulting Provider: [facility] ([facility]) Reason for Consult: New onset acute anemia/hyperbilirubinemia EMERGENT Consult: No MD Notified: Yes Date Notified: 05/31/23 Time Notified: 20:17 Method of Notification: ED Physician Initiated Reason For Visit: ACUTE ANEMIA/HYPERBILIRUBINEMIA Diagnosis Discharge Diagnosis (1) AIHA (autoimmune hemolytic anemia): Status: Acute Code(s): D59.10 - Autoimmune hemolytic anemia, unspecified Plan The patient is a 73 y/o M was sent to ED from cardiology office after blood work showed high bilirubin and low hemoglobin 6.0, last hemoglobin was 15.0 on 08/19/2022. Patient also had shortness of breath gets winded on climbing 1 flight of steps and doing yard work. At home her BP was 100/54. #1. Acute Anemia, macrocytic, due to autoimmune hemolytic anemia most likely warm antibody: Stool for guaiac test was negative. Patient is on DOAC. Units PRBC transfusion given. GI consulted. Repeat hemoglobin 7.9. RDW high 21.3. MCV 150, MCH MCHC all high. Reticulocyte count 27.5%, immature 46.3, haptoglobin pending raising suspicion for hemolysis/hemolytic anemia/spherocytosis. Senior Account Clerk is consulted. Folate, TSH and B12 normal. 06/02: Repeat CBC shows improvement in hemoglobin 9.7/28%. Peripheral slide shows dimorphic RBC cells with 2+ anisocytosis and polychromasia. Prescriptions given for ferrous sulfate, folic acid and vitamin C. #2. 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 Admitted with TB 8.6, direct 0.5 therefore mainly indirect hyperbilirubinemia raising suspicion of hemolytic anemia. Transaminases, ALT low. Serum iron high at 229, TIBC normal, iron saturation high 84.2%. UA shows bilirubinemia, urobilinogen and LE 25. Hepatitis panel hep B surface antibody reactive. LDH 689 high. CK normal. Serial troponins normal. Direct antiglobulin test/Anny test positive. Discussed with customer supply chain analyst Dr. Landers and agree with the diagnosis of hemolytic anemia probably WAHA. Started on prednisone 1 mg/kg body weight, 90 mg daily first dose now. The patient not on usual medication which might have precipitated hemolytic anemia. Did not have any recent antibiotic. 06/02: Discussed with Dr. Landers. Prescriptions given for prednisone 90 mg daily for 2 weeks patient has to follow-up with Dr. Landers in 2 weeks to go over the taper regimen, total course expected 6 weeks. Prescription given for pantoprazole 40 mg daily. #3. PAF: s/p EPS/RFA 03/2017 and 09/[address] Mccullough at [facility], will continue metoprolol as BP allows, holding NOAC given presentation as noted. 06/02: Advise CBC in 1 week and decide about rivaroxaban. Patient does not have currently PCP but patient was to follow-up Dr. Lerma. #4. Non-CAD related Cardiomyopathy/HFrEF: Last echo noted in system from outside facility [facility] 09/29/2017 echocardiogram with no LA, NAE or RA thrombus or spontaneous contrast, normal LV size and systolic function, normal RV, no si gnificant valve disease, a patent peña ovale is not demonstrated by agitated saline contrast. #5. Hypertension: Continue home regimen including metoprolol, Lasix, PRN hydralazine. #6. Hyperlipidemia: Although AST/ALT not altered to be cautious we will temporally hold while ascertaining etiology for hyperbilirubinemia as noted above. #7. SRINIVASA: Following with pulmonary medicine, from most recent visit note will continue BiPAP 09/08. #8. Obesity: Weight loss and lifestyle changes encouraged. #9. Hx NSWCT/NSVT: s/p loop recorder 06/2016. Battery life is . #10. Hx DVT/PE: As noted holding NOAC given acute anemia. #11. Former tobacco use: Encourage continued tobacco cessation. #10. DVT prophylaxis: SCDs, holding NOAC as noted. #11. CODE status: Patient ANGELINA is his who is present and living will is currently in place. Discussed CODE status at length including difference between FULL code, DNR-CCA and DNR-CC status. Following discussions about the differenc es in these status, requested Full Code status. Discharge medication reconciliation done. Discharge follow-up instructions completed. Discharge process discussed with the patient and all questions were answered to patient's satisfaction. Total time spent, exact 35 minutes on discharge meds reconciliation, examination, coordination of care with nurses and ancillary staff, review of imaging and blood test and discussion with the patient on follow-up instructions. Medications at Discharge Home Medications furosemide 20 mg tablet 20 mg PO .COMPLEX #45 tabs 08/05/22 metoprolol succinate 25 mg tablet,extended release 24 hr 12.5 mg (1/2 x 25 mg) PO DAILY #45 tabs 09/04/22 atorvastatin 10 mg tablet 10 mg PO QHS #90 tabs 09/05/22 magnesium oxide 400 mg (241.3 mg magnesium) tablet See Rx Instructions .Route .COMPLEX #90 tabs 01/31/23 rivaroxaban 20 mg tablet 20 mg PO DAILY #30 tabs 04/24/23 ascorbic acid (vitamin C) 500 mg tablet 500 mg PO BID #60 tabs 06/02/23 ferrous sulfate 325 mg (65 mg iron) tablet (FeroSul) 325 mg PO DAILY #30 tabs 06/02/23 folic acid 1 mg tablet 1 mg PO DAILY #30 tabs 06/02/23 pantoprazole 40 mg tablet,delayed release 40 mg PO DAILY 30 days #30 tabs 06/02/23 prednisone 20 mg tablet 90 mg (4.5 x 20 mg) PO BREAKFAST 2 weeks #63 tabs 06/02/23 Physical Exam Narrative Seen and examined. No acute issues. No hematuria, GI bleed or hemoptysis. General: Alert, Oriented x3, Cooperative HEENT: Pallor present. Atraumatic, PERRLA, EOMI, Normocephalic Oral: Oral mucosa moist. No Gingival or Mucosal Lesions/ Ulcerations Neck: Supple, No JVD, Negative Carotid Bruits Lungs: Air entry diminished in bilateral lung bases. No crepitation/rhonchi Cardiovascular: Regular rate, Regular Rhythm, Normal S1, Normal S2, No murmurs Abdomen: Bowel Sounds Present, Soft, Non Tender, Non-Distended : No renal angle tenderness. No suprapubic tenderness. Extremities: No edema, Capillary Refill Less than 3 Seconds Skin: No rashes, No breakdown Musculoskeletal: No Tenderness to Palpation of Joints or Extremities Neurological: Cranial nerves II-XII grossly intact, DTR 2+/4. No acute focal neurological deficit. Psych/Mental Status: Normal Affect, Appropriate. Weight / BMI Weight Weight: 206 lb 2.115 oz Body Mass Index (BMI) 29.5 ABG / Lab / Microbiology Data 06/02/23 09:08 06/02/23 09:08 Laboratory: Laboratory Results - last 24 hr 05/31/23 17:58: Diff Path Review Reviewed Microbiology: Microbiology 05/31/23 18:46 Stool Stool Occult Blood (KIYA) - Final D/C Instructions Discharge Diet: No restrictions Weight Bearing Status: Weight bearing as tolerated Call your doctor if you observe: Fever of 101 or Higher, Coldness, Increased Pain, Numbness or Tingling, Change in Color, Inability to urinate, Inability to have a bowel movement, Shortness of breath, Dizziness, Fainting spells, Swelling in the ankles, Chest pain, Prolonged hiccupping, Increased palpitations (irregular heartbeat) and Calf discomfort When: IN 2 WEEKS Meaningful Use Info Meaningful Use Diagnoses (Choose all that apply): None applicable Discharge Plan Admission Admit Date/Time: 05/31/23 20:12 Primary Reason for Your Visit: Autoimmune hemolytic anemia Attending Provider: Edy Gordon Primary Care Provider: Care Physician,No Primary Consulting Providers: Anastacio Givens; Pedro Landers; Atilio Larson; Calos Kimble; Adrian Duong; Genaro Betancourt; Dick Degroot; Nicki Lawson NP; Ariela Gaston Instructions Additional Instructions / Restrictions: CBC in 1 week and follow-up in hematology clinic/PCP Discharge Orders/Prescriptions Prescriptions: New prednisone 20 mg Tablet 90 mg PO BREAKFAST 14 Days Qty: 63 0RF pantoprazole 40 mg Tablet,Delayed Release (Dr/Ec) 40 mg PO DAILY 30 Days Qty: 30 1RF ferrous sulfate [FeroSul] 325 mg (65 mg iron) tablet 325 mg PO DAILY Qty: 30 2RF folic acid 1 mg tablet 1 mg PO DAILY Qty: 30 2RF ascorbic acid (vitamin C) 500 mg tablet 500 mg PO BID Qty: 60 2RF Continued furosemide 20 mg tablet 20 mg PO .COMPLEX Qty: 45 3RF Rx Instructions: 20 mg PO every other day; metoprolol succinate 25 mg tablet extended release 24 hr 12.5 mg PO DAILY Qty: 45 3RF atorvastatin 10 mg tablet 10 mg PO QHS Qty: 90 3RF magnesium oxide 400 mg (241.3 mg magnesium) tablet See Rx Instructions .ROUTE .COMPLEX Qty: 90 3RF Dose Instruction: take 1 tablet by mouth once daily Rx Instructions: take 1 tablet by mouth once daily Held rivaroxaban 20 mg tablet 20 mg PO DAILY Qty: 30 11RF Hold Instructions: Repeat CBC in 1 week and decide about rivaroxaban after that Referrals / Follow Up: Ama Lerma MD [Med Staff - Active Staff] - Within 1 Week (Follow-up CBC in 1 week and decide about rivaroxaban) Pedro Landers MD [Med Staff - Active Staff] - Within 2 Weeks (Taper prednisone dose for hemolytic anemia.) Care Physician,No Primary [Primary Care Provider] - Disposition Disposition (needs filled in before D/C Order can be placed): Home, Self Care Charges/Coding Visit Charges Inpatient E&M: 63314 Disch Hosp >30min
[2023-06-02 10:15] LABS: Absolute Lymphocyte Count 1.03 X10^3/uL (0.83-4.51); Absolute Neutrophil Count 11.9 X10^3/uL (2.0-7.7); Basophil# 0.03 X10^3/uL; Basophil% 0.2 % (0-1); Hemoglobin 9.7 g/dL (13.0-16.5); Lymphocyte # 1.03 X10^3/ul (0.83-4.51); Lymphocyte % 7.4 % (19-41); Mean Corp Hgb Conc 34.6 g/dL (32-36); Mean Corpuscular Hgb 45.5 pg (27.0-32.0); Mean Corpuscular Volume 131.5 fL (80-94); Mean Platelet Vol. 9.7 fl (6.2-12.0); Monocyte# 0.73 X10^3/uL; Monocyte% 5.2 % (0-10); NRBC Flagged by Analyzer 1.3 % (0-5); Neutrophil # 11.94 X10^3/uL (2.7-7.7); Neutrophil % 85.3 % (47-70); POSITIVE MORPHOLOGY YES; Platelet Count 317 K/mm3 (150-450); Red Blood Count 2.13 M/mm3 (4.6-6.2)
[2023-06-02] MEDS: Pantoprazole Sodium 40 MG Tablet PO (10:44)
[2023-06-02 10:46] LABS: Anisocytosis 2+; Differential Indicated SCAN CRITERIA MET; Polychromasia 2+
[2023-06-02 10:47] LABS: AST(SGOT) 28 U/L (15-37); Alanine Aminotransfer ALT/SGPT 12 U/L (16-61); Albumin, Serum 3.4 g/dL (3.2-5.0); Alkaline Phosphatase 83 U/L (45-117); Anion Gap 7 (5-15); BUN 24 mg/dL (7-18); BUN/Creat Ratio 20.2 RATIO (10-20); Bilirubin, Direct 0.49 mg/dL (0.00-0.30); Chloride 110 mmol/L (98-107); Creatinine, Serum 1.19 mg/dL (0.70-1.30); EST Glomerular Filtration Rate 64 mL/min (>60); Est Glom Filt Rate - Afr Amer 77 mL/min (>60); Estimated Creatinine Clearance 57.08 ml/min; Globulin 3.4 g/dL (2.2-4.2); Glucose 131 mg/dL (74-106); Potassium 4.1 mmol/L (3.5-5.1); Protein, Total 6.8 g/dL (6.4-8.2); Sodium Level 140 mmol/L (136-145)
--- NOTE | 2023-06-02 11:20 | CASEMGMT ---
Patient has order for discharge. RN CM in to discuss needs at discharge. Patient denies needs at discharge. Patient had no further questions or concerns.
[2023-06-02 15:08] LABS: Aldolase 8.4 U/L (3.3-10.3); Haptoglobin < 10 mg/dL (34-355)
== END 2023-06-02 13:23 | disposition home or self-care (01) | DRG 809 ==
LOC: ED 21:09 → PCU 21:22
PROVIDERS: Admitting Provider Family Medicine; Emergency Provider Emergency Medicine; Visit Provider Internal Medicine
DX: D59.10 Autoimmune hemolytic anemia, unspecified (principal); I42.9 Cardiomyopathy, unspecified; I50.22 Chronic systolic (congestive) heart failure; I11.0 Hypertensive heart disease with heart failure; I48.0 Paroxysmal atrial fibrillation; D53.9 Nutritional anemia, unspecified; E78.5 Hyperlipidemia, unspecified; G47.33 Obstructive sleep apnea (adult) (pediatric); E80.6 Other disorders of bilirubin metabolism; E66.9 Obesity, unspecified; Z87.891 Personal history of nicotine dependence; Z79.2 Long term (current) use of antibiotics; Z86.718 Personal history of other venous thrombosis and embolism; Z86.711 Personal history of pulmonary embolism; Z68.29 Body mass index [BMI] 29.0-29.9, adult
CPT/HCPCS: 36415; 76705; 80048; 80053; 80076; 81001; 82085; 82274; 82550; 82607; 82728; 82746; 82977; 83010; 83540; 83550; 83615; 83690; 83735; 83880; 84443; 84484; 85014; 85018; 85025; 85045; 85379; 85610; 85730; 86706; 86803; 86850; 86880; 86900; 86901; 86920; 86921; 87340; 93005; 94668; 94762; 99252; 99285; J7030; J7040; P9016; A4216; G0463

== ENCOUNTER → 2023-05-31 | Outpatient (CLI) | payer MEDICARE, BC, SELFPAY ==
[2023-05-31 12:47] LABS: BNP,B-Type NATRIURETIC PEPTIDE 89.8 pg/mL (0-100)
[2023-05-31 12:58] LABS: Absolute Lymphocyte Count 1.86 X10^3/uL (0.83-4.51); Absolute Neutrophil Count 6.9 X10^3/uL (2.0-7.7); Basophil# 0.13 X10^3/uL; Basophil% 1.3 % (0-1); Eosinophil# 0.25 X10^3/uL; Eosinophils% 2.4 % (0-5); Hematocrit 19.5 % (40-54); Hemoglobin 7.2 g/dL (13.0-16.5); Lymphocyte # 1.86 X10^3/ul (0.83-4.51); Lymphocyte % 18.2 % (19-41); Mean Corp Hgb Conc 36.9 g/dL (32-36); Mean Corpuscular Volume 148.9 fL (80-94); Mean Platelet Vol. 9.9 fl (6.2-12.0); Monocyte# 0.93 X10^3/uL; Monocyte% 9.1 % (0-10); NRBC Flagged by Analyzer 5.3 % (0-5); Neutrophil # 6.92 X10^3/uL (2.7-7.7); Neutrophil % 67.6 % (47-70); POSITIVE COUNT YES; POSITIVE MORPHOLOGY YES; Platelet Count 336 K/mm3 (150-450); RBC Distribution Width CV 22.2 % (11.6-14.6); Red Blood Count 1.31 M/mm3 (4.6-6.2); White Blood Count 10.2 K/mm3 (4.4-11.0)
[2023-05-31 12:59] LABS: Differential Indicated SCAN CRITERIA MET; RBC Distribution Width SD 109.9 fl (35.1-43.9)
[2023-05-31 13:01] LABS: ALB/GLOB Ratio 1.2 RATIO (0.9-2.4); AST(SGOT) 33 U/L (15-37); Alanine Aminotransfer ALT/SGPT 14 U/L (16-61); Albumin, Serum 3.7 g/dL (3.2-5.0); Alkaline Phosphatase 80 U/L (45-117); Anion Gap 6 (5-15); BUN 22 mg/dL (7-18); BUN/Creat Ratio 17.7 RATIO (10-20); Calcium,Total 8.7 mg/dL (8.5-10.1); Chloride 107 mmol/L (98-107); Creatinine, Serum 1.24 mg/dL (0.70-1.30); EST Glomerular Filtration Rate 61 mL/min (>60); Est Glom Filt Rate - Afr Amer 73 mL/min (>60); Glucose 97 mg/dL (74-106); Magnesium 2.2 mg/dL (1.6-2.6); Potassium 3.8 mmol/L (3.5-5.1); Protein, Total 6.7 g/dL (6.4-8.2); Sodium Level 139 mmol/L (136-145); Thyroid Stim Hormone (TSH) 1.78 uIU/mL (0.358-3.74)
[2023-05-31 13:27] LABS: Differential Comment SCANNED
[2023-05-31 13:28] LABS: Polychromasia 2+
[2023-05-31 13:31] LABS: Macrocytosis 3+
[2023-05-31 13:32] LABS: Anisocytosis 3+; Rouleaux RARE
== END | disposition home or self-care (01) ==
LOC: LAB 11:07
PROVIDERS: PCP Family Medicine; Referring Provider Nurse Practitioner Gerontology; Visit Provider Nurse Practitioner Gerontology
DX: I48.0 Paroxysmal atrial fibrillation (principal); R06.00 Dyspnea, unspecified
CPT/HCPCS: 36415; 80053; 83735; 83880; 84443; 85025

== ENCOUNTER → 2023-06-08 | Outpatient (CLI) | payer MEDICARE, BC, SELFPAY ==
[2023-06-08 12:19] LABS: Absolute Lymphocyte Count 1.91 X10^3/uL (0.83-4.51); Absolute Neutrophil Count 7.5 X10^3/uL (2.0-7.7); Basophil# 0.01 X10^3/uL; Basophil% 0.1 % (0-1); Eosinophil# 0.07 X10^3/uL; Eosinophils% 0.7 % (0-5); Hematocrit 29.9 % (40-54); Hemoglobin 10.5 g/dL (13.0-16.5); Lymphocyte # 1.91 X10^3/ul (0.83-4.51); Mean Corp Hgb Conc 35.1 g/dL (32-36); Mean Corpuscular Hgb 45.3 pg (27.0-32.0); Mean Corpuscular Volume 128.9 fL (80-94); Mean Platelet Vol. 9.7 fl (6.2-12.0); Monocyte% 10.4 % (0-10); NRBC Flagged by Analyzer 0.4 % (0-5); Neutrophil # 7.45 X10^3/uL (2.7-7.7); Neutrophil % 70.2 % (47-70); POSITIVE MORPHOLOGY YES; Platelet Count 335 K/mm3 (150-450); RBC Distribution Width CV 19.6 % (11.6-14.6); RBC Distribution Width SD 92.4 fl (35.1-43.9); Red Blood Count 2.32 M/mm3 (4.6-6.2); White Blood Count 10.6 K/mm3 (4.4-11.0)
[2023-06-08 12:21] LABS: Differential Indicated SCAN CRITERIA MET
[2023-06-08 12:38] LABS: ALB/GLOB Ratio 1.4 RATIO (0.9-2.4); AST(SGOT) 15 U/L (15-37); Alanine Aminotransfer ALT/SGPT 17 U/L (16-61); Albumin, Serum 3.7 g/dL (3.2-5.0); Alkaline Phosphatase 70 U/L (45-117); Anion Gap 5 (5-15); BUN 22 mg/dL (7-18); BUN/Creat Ratio 17.9 RATIO (10-20); Calcium,Total 8.9 mg/dL (8.5-10.1); Chloride 102 mmol/L (98-107); Creatinine, Serum 1.23 mg/dL (0.70-1.30); EST Glomerular Filtration Rate 61 mL/min (>60); Est Glom Filt Rate - Afr Amer 74 mL/min (>60); Globulin 2.7 g/dL (2.2-4.2); Glucose 95 mg/dL (74-106); Potassium 3.6 mmol/L (3.5-5.1); Protein, Total 6.4 g/dL (6.4-8.2); Sodium Level 137 mmol/L (136-145)
[2023-06-08 12:39] LABS: Anisocytosis 1+
== END | disposition home or self-care (01) ==
LOC: MTLAB 10:24
PROVIDERS: PCP Nurse Practitioner Family; Visit Provider Nurse Practitioner Family
DX: D59.10 Autoimmune hemolytic anemia, unspecified (principal)
CPT/HCPCS: 36415; 80053; 85025

== ENCOUNTER 2023-06-21 02:06 | Emergency (ER) | payer MEDICARE, BC, SELFPAY ==
[2023-06-21 02:08] VITALS: BP 149/109; PULSE 62; RESP 28; TEMP 36.6; O2SAT 94
[2023-06-21 02:52] LABS: Absolute Neutrophil Count 22.4 X10^3/uL (2.0-7.7); Basophil# 0.07 X10^3/uL; Basophil% 0.3 % (0-1); Eosinophil# 0.33 X10^3/uL; Eosinophils% 1.3 % (0-5); Hematocrit 41.2 % (40-54); Hemoglobin 13.6 g/dL (13.0-16.5); Lymphocyte % 2.4 % (19-41); Mean Corpuscular Hgb 41.1 pg (27.0-32.0); Mean Corpuscular Volume 124.5 fL (80-94); Mean Platelet Vol. 9.5 fl (6.2-12.0); Monocyte# 0.99 X10^3/uL; NRBC Flagged by Analyzer 0 % (0-5); Neutrophil # 22.42 X10^3/uL (2.7-7.7); Neutrophil % 91.6 % (47-70); POSITIVE DIFFERENTIAL YES; Platelet Count 356 K/mm3 (150-450); RBC Distribution Width CV 12.6 % (11.6-14.6); RBC Distribution Width SD 58.2 fl (35.1-43.9); Red Blood Count 3.31 M/mm3 (4.6-6.2); White Blood Count 24.5 K/mm3 (4.4-11.0)
[2023-06-21 02:58] LABS: Differential Indicated SCAN CRITERIA MET
[2023-06-21 03:09] LABS: ALB/GLOB Ratio 1.1 RATIO (0.9-2.4); AST(SGOT) 16 U/L (15-37); Alanine Aminotransfer ALT/SGPT 34 U/L (16-61); Alkaline Phosphatase 74 U/L (45-117); Anion Gap 10 (5-15); BUN 21 mg/dL (7-18); Calcium,Total 9.2 mg/dL (8.5-10.1); Chloride 104 mmol/L (98-107); Creatinine, Serum 1.61 mg/dL (0.70-1.30); EST Glomerular Filtration Rate 45 mL/min (>60); Est Glom Filt Rate - Afr Amer 54 mL/min (>60); Globulin 3.5 g/dL (2.2-4.2); Glucose 126 mg/dL (74-106); Potassium 3.8 mmol/L (3.5-5.1); Protein, Total 7.5 g/dL (6.4-8.2); Sodium Level 138 mmol/L (136-145)
[2023-06-21 03:15] LABS: Differential Comment SCANNED
--- NOTE | 2023-06-21 03:23 | CT_ITS ---
INDICATION: abd pain EXAMINATION: CT ABDOMEN AND PELVIS WITHOUT CONTRAST - CT Abdomen And Pelvis W/O Contrast Injection TECHNIQUE: Helically acquired images were obtained of the abdomen and pelvis without oral or IV contrast. A radiation dose optimization technique was used for this scan. IV Contrast dosage and agent: None. Oral contrast: None. RADIATION DOSAGE (If Supplied By Facility): CTDIvol = ( 12.46 ) mGy, DLP = ( 647.27 ) mGycm COMPARISON: CT Abdomen/Pelvis Sep 09 2015 FINDINGS: LOWER CHEST: There is a hiatal hernia containing fat and small amount of fluid. Dependent atelectasis in the right lower lobe. No cardiomegaly or pericardial effusion. LIVER: Homogeneous. No focal mass. GALLBLADDER AND BILIARY TREE: No calcified gallstones. No gallbladder distension or wall edema. No intra- or extrahepatic biliary ductal dilation. PANCREAS: No focal cystic or solid mass. SPLEEN: Normal size without focal cystic or solid mass. ADRENAL GLANDS: No nodules. KIDNEYS AND URETERS: Bilateral nonobstructive kidney stones, the largest measures 3 mm. Bilateral renal cysts the largest measures 2.6 cm. No hydronephrosis. PERITONEUM: No ascites or free air. No other fluid collection. BOWEL: No evidence of acute appendicitis. No stomach or bowel distension. Descending colon and sigmoid diverticulosis. There is minimal fat stranding adjacent to the sigmoid colon suggesting early early diverticulitis. LYMPH NODES: No enlarged mesenteric or retroperitoneal lymph nodes. VESSELS: Aorta is non-dilated. URINARY BLADDER: Unremarkable. REPRODUCTIVE ORGANS: No pelvic masses. ABDOMINAL WALL: No discrete abdominal or pelvic wall hernia. BONES: No lytic or blastic abnormality. CT/Abdomen/Pelvis without Cont IMPRESSION: There is a hiatal hernia containing fat and small amount of fluid. Bilateral nonobstructive kidney stones, the largest measures 3 mm. Bilateral renal cysts the largest measures 2.6 cm. Descending colon and sigmoid diverticulosis. There is minimal fat stranding adjacent to the sigmoid colon suggesting early early diverticulitis. Electronically Signed: Emily Aparicio MD at 5:02 EDT ,
[2023-06-21] MEDS: Diphenoxylate/Atrop 1 Tablet 2 TABLET PO (03:28)
[2023-06-21] MEDS: Ondansetron 4 MG/2 ML Vial IV (03:28)
[2023-06-21] MEDS: 0.9% Normal Saline (1000mL) 1,000 ML 999 ML IV ×2 (03:28→05:01)
[2023-06-21 03:30] LABS: Magnesium 2.3 mg/dL (1.6-2.6)
[2023-06-21 03:54] VITALS: BP 116/71; PULSE 84; RESP 23; O2SAT 95
[2023-06-21 04:40] LABS: Lactic Acid 2.7 mmol/L (0.4-1.9)
[2023-06-21 04:55] VITALS: BP 100/61; PULSE 83; RESP 19; O2SAT 95
--- NOTE | 2023-06-21 05:33 | EX.ED.DYSGE1 ---
HPI History of Present Illness Chief Complaint: Nausea/Vomiting/Diarrhea Informant: patient and family Narrative Narrative: Patient is a 73-year-old male with past medical history of atrial fibrillation hypertension and recent diagnosis of autoimmune hemolytic anemia. He has been on high-dose prednisone secondary to this and was recently in the hospital. He was discharged home approximately week ago and states he has been doing well. He reports however that last night he developed generalized abdominal discomfort with multiple bouts of watery diarrhea as well as bouts of vomiting. He denies any known sick contacts and he states he does not have a history of IBS ulcerative colitis or Crohn's disease. He denies any recent travel outside the country but does admit to antibiotics at his last hospital stay. Secondary to the new onset symptoms he presents for evaluation [facility] Medical History (Updated 06/21/23 @ 07:[address] Jm Shea, ) AIHA (autoimmune hemolytic anemia) Anemia Atrial fibrillation Bilateral enlargement of atria Cardiomyopathy in other diseases classified elsewhere Essential hypertension Former tobacco use Gout Hemolytic anemia History of alcohol abuse Hyperlipidemia Hypertension Low HDL (under 40) Nonrheumatic aortic valve regurgitation Nonrheumatic mitral valve regurgitation SRINIVASA (obstructive sleep apnea) Paroxysmal atrial fibrillation Systolic congestive heart failure Home Medications furosemide 20 mg tablet 20 mg PO .COMPLEX #45 tabs 08/05/22 [Rx Last Taken Unknown] metoprolol succinate 25 mg tablet,extended release 24 hr 12.5 mg (1/2 x 25 mg) PO DAILY #45 tabs 09/04/22 [Rx Last Taken Unknown] atorvastatin 10 mg tablet 10 mg PO QHS #90 tabs 09/05/22 [Rx Last Taken Unknown] magnesium oxide 400 mg (241.3 mg magnesium) tablet See Rx Instructions .Route .COMPLEX #90 tabs 01/31/23 [Rx Last Taken Unknown] rivaroxaban 20 mg tablet 20 mg PO DAILY #30 tabs 04/24/23 [Rx Last Taken Unknown] ascorbic acid (vitamin C) 500 mg tablet 500 mg PO BID #60 tabs 06/02/23 [Rx Last Taken Unknown] ferrous sulfate 325 mg (65 mg iron) tablet (FeroSul) 325 mg PO DAILY #30 tabs 06/02/23 [Rx Last Taken Unknown] folic acid 1 mg tablet 1 mg PO DAILY #30 tabs 06/02/23 [Rx Last Taken Unknown] pantoprazole 40 mg tablet,delayed release 40 mg PO DAILY 30 days #30 tabs 06/02/23 [Rx Last Taken Unknown] prednisone 20 mg tablet 40 mg (2 x 20 mg) PO BREAKFAST 2 weeks #28 tabs 06/20/23 [Rx Last Taken Unknown] diphenoxylate-atropine 2.5 mg-0.025 mg tablet (Lomotil) 1 tab PO 4X/DAY PRN PRN diarrhea 5 days #20 tabs 06/21/23 [Rx Last Taken Unknown] ondansetron 4 mg disintegrating tablet 4 mg PO TID PRN nausea and vomiting #21 tabs 06/21/23 [Rx Last Taken Unknown] Allergy/AdvReac Type Severity Reaction Status Date / Time Iodinated Contrast Media Allergy Hives Verified 06/13/23 15:51 [CONTRASTS] clarithromycin [From Biaxin] AdvReac Unknown Unknown Verified 06/13/23 15:51 amoxicillin AdvReac Diarrhea Verified 06/13/23 15:51 Family History Mother Cancer Father Myocardial infarction Heart disease Surgical History History of cataract surgery History of loop recorder History of radiofrequency ablation procedure for cardiac arrhythmia (~09/29/17) History of tonsillectomy Status post ablation of atrial fibrillation (~09/29/17) Social History household members: spouse housing: house pets and animals: Yes pets and animals: cat(s) and dog(s) Smoking Status: Former smoker quit date: 09/25/14 pack-years: 43 second hand exposure: No alcohol intake: never substance use type: does not use caffeine: Yes Type: coffee Number of servings: 3 what type of physical activity do you participate in: none seatbelt use: always do you feel safe at home: Yes ROS ROS ED Constitutional Constitutional ED: Denies chills or fever(s) ENT ENT ED: Denies sore throat Cardiovascular Cardiovascular: Reports palpitations; Denies chest pain Respiratory/Chest Respiratory/Chest: Denies cough or dyspnea Gastrointestinal Gastrointestinal: Reports abdominal pain, diarrhea, nausea and vomiting Genitourinary Genitourinary ED: Denies dysuria Musculoskeletal Musculoskeletal: Reports myalgias Integumentary Denies rash Neurologic Neurologic: Denies headache(s) Hematologic/Lymphatic Hematologic/Lymphatic: Reports easy bleeding and easy bruising EXAM Physical Exam Const Vital Signs: 06/21/23 02:08 06/21/23 03:54 06/21/23 04:55 Temperature 97.8 F Temperature Source Temporal Pulse Rate 62 84 83 Respiratory Rate 28 H 23 H 19 H Blood Pressure 149/109 H 116/71 100/61 Blood Pressure Mean 122 86 74 Pulse Ox 94 95 95 Oxygen Delivery Method Room Air Room Air Room Air 06/21/23 06:04 06/21/23 06:00 Temperature Temperature Source Pulse Rate 81 81 Respiratory Rate 19 H 19 H Blood Pressure 110/60 110/60 Blood Pressure Mean 76 Pulse Ox 93 93 Oxygen Delivery Method Room Air Positive well nourished and well developed General Appearance ED: well developed; Negative for pallor HEENT Reports dry mucous membranes HEENT Narrative: Mucous membranes are dry and tacky without secondary changes to suggest infection Mouth ED: Yes dry mucous membranes Mouth: dry mucous membranes Eyes PERRL and EOMs intact bilaterally General Eye ED: Negative for pale conjunctiva or scleral icterus Neck supple Neck Narrative: No nuchal rigidity or meningeal signs noted Resp normal respiratory effort and clear to auscultation bilaterally Cardio Rate: other Other Details: Irregularly irregular rhythm with regular rate consistent with history of atrial fibrillation GI non-tender and non-distended GI Narrative: Abdomen is soft and nondistended with hyperactive bowel sounds. No voluntary guarding or rigidity. No pulsatile mass or fluid wave. No overt pain with palpation Auscultation: hyperactive bowel sounds Palpation: soft Extremity normal to inspection Neuro oriented x3 and CN's II-XII intact bilaterally Sensorium / Orientation: alert Psych mental status grossly normal Skin no rashes or lesions noted Skin Narrative: Skin turgor is increased General Skin Exam: Negative for jaundice or pallor MDM MDM MDM Narrative Medical decision making narrative: Patient presented to the ER afebrile with a soft nonsurgical abdomen. With his recent hospitalization and antibiotic use there is concern that he has developed infectious diarrhea such as Salmonella or E. coli or C. difficile so therefore stool sample will be obtained and sent out. With multiple episodes of vomiting and diarrhea there is concern for acute kidney injury or electrolyte abnormality. There is also concern for intestinal infection such as colitis versus gastroenteritis or even a abnormal obstructive process. Patient blood work was obtained and shows leukocytosis of 24.5 with elevation of the absolute neutrophil count but this correlates with the patient's high dose of prednisone secondary to autoimmune hemolytic anemia. His kidney function is slightly elevated and his lactic acid is also slightly bumped correlating with dehydration. Patient was given Lomotil and Zofran and had resolution of his diarrhea and vomiting. He was given 2 L of IV fluid for hydration. CT scan showed no obstructive process or signs of perforation. There was slight stranding around the sigmoid colon with radiologist questioning early early diverticulitis but with his picture of recurrent diarrhea this is not clinically correlate plus he does not have pain in that area. I discussed the case over with the patient's oncologist and he feels like the values of his white count and neutrophil count are secondary to high-dose prednisone and does not have any reservation with the plan of care at this time. Therefore as patient had improvement of symptoms and not showing changes concerning for acute kidney injury and CAT scan reveals no acute infectious or obstructive process he can be discharged home and follow-up on an outpatient basis. History & Record Review Discussion w/independent historian: Patient and Family Lab Data Attestation: I reviewed the patient's lab results. Labs: Laboratory Results - last 24 hr 06/21/23 06/21/23 06/21/23 02:35 03:20 05:55 WBC 24.5 H RBC 3.31 L Hgb 13.6 Hct 41.2 MCV 124.5 H MCH 41.1 H MCHC 33.0 RDW Std Deviation 58.2 H RDW Coeff of [place] 12.6 Plt Count 356 MPV 9.5 Immature Gran % (Auto) 0.400 Neut % (Auto) 91.6 H Lymph % (Auto) 2.4 L [place] % (Auto) 4.0 Eos % (Auto) 1.3 Baso % (Auto) 0.3 Absolute Neuts (auto) 22.4 H Absolute Lymphs (auto) 0.60 L Nucleated RBC % 0 Differential Comment SCANNED Sodium 138 Potassium 3.8 Chloride 104 Carbon Dioxide 24.0 Anion Gap 10 BUN 21 H Creatinine 1.61 H Est GFR (MDRD) Af Amer 54 L Est GFR (MDRD) Non-Af 45 L BUN/Creatinine Ratio 13.0 Glucose 126 H Lactic Acid 2.7 H* Calcium 9.2 Magnesium 2.3 Total Bilirubin 1.90 H AST 16 ALT 34 Alkaline Phosphatase 74 Total Protein 7.5 Albumin 4.0 Globulin 3.5 Albumin/Globulin Ratio 1.1 Urine Color Yellow Urine Clarity Clear Urine pH 5.0 Ur Specific [place] 1.020 Urine Protein 30 H Urine Glucose (UA) Normal Urine Ketones 5 H Urine Occult Blood Negative Urine Nitrite Negative Urine Bilirubin Negative Urine Urobilinogen 1 H Ur Leukocyte Esterase 25 H Urine RBC 0 SEEN Urine WBC 0-5 SEEN Ur Squamous Epith Cells 0 SEEN Ur Renal Epithelial Cell 0-5 SEEN Amorphous Sediment R Urine Bacteria 1+ Urine Mucus 1+ Radiography Diagnostic Testing: Clinical Impression(s) from Imaging Studies Abdomen/Pelvis CT 06/21/23 03:23 IMPRESSION: There is a hiatal hernia containing fat and small amount of fluid. Bilateral nonobstructive kidney stones, the largest measures 3 mm. Bilateral renal cysts the largest measures 2.6 cm. Descending colon and sigmoid diverticulosis. There is minimal fat stranding adjacent to the sigmoid colon suggesting early early diverticulitis. Electronically Signed: Emily Aparicio MD at 5:02 EDT , Discharge Plan Triage Chief Complaint: Nausea/Vomiting/Diarrhea ED Provider: Jm Shea Dx/Rx/DC Orders Clinical Impression: Nausea vomiting and diarrhea, Dehydration, Autoimmune hemolytic anemia, Atrial fibrillation Instructions: Dehydration, ED Diarrhea, Unknown Cause Prescriptions: New diphenoxylate-atropine [Lomotil] 2.5-0.025 mg tablet 1 tab PO 4X/DAY PRN PRN (Reason: diarrhea) 5 Days Qty: 20 0RF ondansetron 4 mg tablet,disintegrating 4 mg PO TID PRN (Reason: nausea and vomiting) Qty: 21 0RF No Action pantoprazole 40 mg Tablet,Delayed Release (Dr/Ec) 40 mg PO DAILY 30 Days Qty: 30 1RF ferrous sulfate [FeroSul] 325 mg (65 mg iron) tablet 325 mg PO DAILY Qty: 30 2RF folic acid 1 mg tablet 1 mg PO DAILY Qty: 30 2RF ascorbic acid (vitamin C) 500 mg tablet 500 mg PO BID Qty: 60 2RF furosemide 20 mg tablet 20 mg PO .COMPLEX Qty: 45 3RF Rx Instructions: 20 mg PO every other day; metoprolol succinate 25 mg tablet extended release 24 hr 12.5 mg PO DAILY Qty: 45 3RF atorvastatin 10 mg tablet 10 mg PO QHS Qty: 90 3RF magnesium oxide 400 mg (241.3 mg magnesium) tablet See Rx Instructions .ROUTE .COMPLEX Qty: 90 3RF Dose Instruction: take 1 tablet by mouth once daily Rx Instructions: take 1 tablet by mouth once daily rivaroxaban 20 mg tablet 20 mg PO DAILY Qty: 30 11RF Hold Instructions: Repeat CBC in 1 week and decide about rivaroxaban after that prednisone 20 mg tablet 40 mg PO BREAKFAST 14 Days Qty: 28 0RF Primary Care Provider: Susana Rodriges NP Referrals: Susana Rodriges NP, [facility] [Primary Care Provider] - Activity Restrictions/Additional Instructions: Please keep yourself well-hydrated and take the Zofran to control nausea and Lomotil to help with loose stool/diarrhea. If your stool sample results an infectious process such as Salmonella Shigella or E. coli you will receive a phone call otherwise no news is good news indicating that the stool sample is negative. Continue all of your other medications as directed by your doctors. Return to the ER should you have any further concerns or worsening of symptoms Disposition Disposition: Home, Self Care Discharge Date/Time: 06/21/23 06:57
[2023-06-21 06:00] VITALS: BP 110/60; PULSE 81; RESP 19; O2SAT 93
[2023-06-21 06:00] LABS: Red Blood Cells-Urine 0 SEEN /hpf (0-5); Squamous Epithelial Cells - UA 0 SEEN /hpf (0-5)
[2023-06-21 06:01] LABS: Color, Urine Yellow (Yellow); Glucose, Dipstick Normal (Normal); Ketone-Dipstick 5 mg/dl (Negative); Leukocyte Esterase-Dipstick 25 /ul (Negative); Nitrite-Dipstick Negative (Negative); Occult Blood-Urine Negative /ul (Negative); Protein-Dipstick 30 mg/dl (Negative); Urine Bilirubin Dipstick Negative (Negative); Urine Clarity Clear (Clear); Urine Urobilinogen 1 mg/dl (Normal)
[2023-06-21 06:04] VITALS: BP 110/60; PULSE 81; RESP 19; O2SAT 93
[2023-06-21 06:11] LABS: Bacteria 1+ /hpf (None Seen); Mucous, Urine 1+ /hpf (<or=2+); White Blood Cells 0-5 SEEN /hpf (0-5)
[2023-06-21 06:12] LABS: Amorphous Sediment R; Renal Epithelial Cells 0-5 SEEN /hpf (0-5)
[2023-06-21 07:25] LABS: Reflex Lactate? Y
== END 2023-06-21 06:57 | disposition home or self-care (01) ==
PROVIDERS: Emergency Provider Emergency Medicine; PCP Nurse Practitioner Family; Visit Provider Emergency Medicine
DX: R19.7 Diarrhea, unspecified (principal); D59.10 Autoimmune hemolytic anemia, unspecified; I50.22 Chronic systolic (congestive) heart failure; I11.0 Hypertensive heart disease with heart failure; I48.0 Paroxysmal atrial fibrillation; R11.2 Nausea with vomiting, unspecified; E86.0 Dehydration; E78.5 Hyperlipidemia, unspecified; Z87.891 Personal history of nicotine dependence; Z79.899 Other long term (current) drug therapy; Z79.01 Long term (current) use of anticoagulants
CPT/HCPCS: 74176; 80053; 81001; 83605; 83735; 85025; 87506; 96361; 96374; 99285; J7030; A4216; J2405

== ENCOUNTER → 2023-09-19 | Outpatient (CLI) | payer MEDICARE, BC, SELFPAY ==
[2023-09-19 12:15] LABS: Absolute Neutrophil Count 9.8 X10^3/uL (2.0-7.7); Basophil# 0.06 X10^3/uL; Basophil% 0.5 % (0-1); Eosinophil# 0.01 X10^3/uL; Eosinophils% 0.1 % (0-5); Hematocrit 40.6 % (40-54); Hemoglobin 13.2 g/dL (13.0-16.5); Lymphocyte % 6.6 % (19-41); Mean Corp Hgb Conc 32.5 g/dL (32-36); Mean Corpuscular Hgb 31.7 pg (27.0-32.0); Mean Corpuscular Volume 97.4 fL (80-94); Mean Platelet Vol. 10.3 fl (6.2-12.0); Monocyte# 1.35 X10^3/uL; Monocyte% 11.1 % (0-10); NRBC Flagged by Analyzer 0 % (0-5); Neutrophil # 9.82 X10^3/uL (2.7-7.7); Platelet Count 267 K/mm3 (150-450); RBC Distribution Width CV 12.7 % (11.6-14.6); RBC Distribution Width SD 45.4 fl (35.1-43.9); Red Blood Count 4.17 M/mm3 (4.6-6.2); White Blood Count 12.1 K/mm3 (4.4-11.0)
== END | disposition home or self-care (01) ==
LOC: MFPLAB 10:02
PROVIDERS: PCP Family Medicine; Visit Provider Family Medicine
DX: D64.9 Anemia, unspecified (principal)
CPT/HCPCS: 36415; 85025

== ENCOUNTER → 2023-10-30 | Outpatient (CLI) | payer MEDICARE, BC, SELFPAY ==
[2023-10-30 10:36] LABS: AST(SGOT) 10 U/L (15-37); Alanine Aminotransfer ALT/SGPT 26 U/L (16-61); Albumin, Serum 3.6 g/dL (3.2-5.0); Alkaline Phosphatase 66 U/L (45-117); Cholesterol 134 mg/dL (200); Globulin 3.7 g/dL (2.2-4.2); High Density Lipoprotein 52 mg/dL; Protein, Total 7.3 g/dL (6.4-8.2); Triglycerides 46 mg/dL; Very Low Density Lipoprotein 9 mg/dL (5-40)
[2023-10-30 11:57] LABS: Absolute Lymphocyte Count 1.25 X10^3/uL (0.83-4.51); Absolute Neutrophil Count 3.2 X10^3/uL (2.0-7.7); Basophil# 0.08 X10^3/uL; Basophil% 1.5 % (0-1); Eosinophil# 0.23 X10^3/uL; Eosinophils% 4.4 % (0-5); Hematocrit 40.2 % (40-54); Lymphocyte # 1.25 X10^3/ul (0.83-4.51); Lymphocyte % 23.7 % (19-41); Mean Corp Hgb Conc 32.3 g/dL (32-36); Mean Corpuscular Hgb 32.2 pg (27.0-32.0); Mean Corpuscular Volume 99.5 fL (80-94); Mean Platelet Vol. 9.9 fl (6.2-12.0); Monocyte# 0.49 X10^3/uL; Monocyte% 9.3 % (0-10); NRBC Flagged by Analyzer 0 % (0-5); Neutrophil # 3.22 X10^3/uL (2.7-7.7); Neutrophil % 60.9 % (47-70); Platelet Count 266 K/mm3 (150-450); RBC Distribution Width CV 14.2 % (11.6-14.6); RBC Distribution Width SD 52.7 fl (35.1-43.9); Red Blood Count 4.04 M/mm3 (4.6-6.2); White Blood Count 5.3 K/mm3 (4.4-11.0)
[2023-10-30 12:01] LABS: Uric Acid 6.7 mg/dL (3.5-7.2)
[2023-10-31 14:40] LABS: Anion Gap 2 (5-15); BUN 27 mg/dL (7-18); BUN/Creat Ratio 24.1 RATIO (10-20); Calcium,Total 9.7 mg/dL (8.5-10.1); Chloride 107 mmol/L (98-107); Creatinine, Serum 1.12 mg/dL (0.70-1.30); EST Glomerular Filtration Rate 68 mL/min (>60); Est Glom Filt Rate - Afr Amer 83 mL/min (>60); Glucose 102 mg/dL (74-106); Potassium 4.4 mmol/L (3.5-5.1); Sodium Level 137 mmol/L (136-145)
== END | disposition home or self-care (01) ==
LOC: MFPLAB 08:24
PROVIDERS: Physician Assistant Medical; PCP Family Medicine; Visit Provider Family Medicine
DX: Z13.21 Encounter for screening for nutritional disorder (principal); E78.00 Pure hypercholesterolemia, unspecified; M10.9 Gout, unspecified; I10 Essential (primary) hypertension
CPT/HCPCS: 36415; 80048; 80061; 80076; 84550; 85025

== ENCOUNTER → 2023-11-16 | Outpatient (CLI) | payer MEDICARE, BC, SELFPAY | END | disposition home or self-care (01) | LOC: PSN 09:55 | PROVIDERS: PCP Family Medicine; Referring Provider Nurse Practitioner Gerontology; Visit Provider Nurse Practitioner Gerontology | DX: I48.0 Paroxysmal atrial fibrillation (principal) | CPT/HCPCS: 93225; 93226 ==

== ENCOUNTER → 2024-03-12 | Outpatient (CLI) | payer MEDICARE, BC, SELFPAY ==
[2024-03-14 13:08] LABS: Lyme IGG CIA Positive (Negative); Lyme IGM CIA Positive (Negative); Lyme Scn Total Ab w/Rflx Positive (Negative)
== END | disposition home or self-care (01) ==
LOC: MTLAB 13:16
PROVIDERS: PCP Family Medicine; Referring Provider Family Medicine; Visit Provider Family Medicine
DX: T14.8XXA Other injury of unspecified body region, initial encounter (principal); W57.XXXA Bitten or stung by nonvenomous insect and other nonvenomous arthropods, initial encounter
CPT/HCPCS: 36415; 86618

== ENCOUNTER → 2024-03-20 | Outpatient (CLI) | payer MEDICARE, BC, SELFPAY ==
--- NOTE | 2024-03-20 13:51 | ECHOD_ITS ---
Version 2 Reason For Study: ATRIAL FIBRILLATION Procedure This was a 2D Doppler, Color Flow transthoracic echocardiogram. Exam performed in department. Left Ventricle Normal size and thickness. The left ventricular ejection fraction is 55 %. Diastolic function is indeterminate. Right Ventricle Normal right ventricle. Atria The left atrium is severely enlarged. The right atrium is moderately enlarged. Mitral Valve Mild (1+) mitral valve insufficiency. Tricuspid Valve Trivial tricuspid valve insufficiency. Right ventricular systolic pressure estimated to be 41 mmHg. Aortic Valve Mild focal aortic valve calcification. Aortic sclerosis, no stenosis. Mild (1+) aortic valve insufficiency. Pulmonic Valve The pulmonic valve is not well visualized. Great Vessels Mildly dilated aortic root. Pericardium/Pleural No pericardial effusion. MMode/2D Measurements & Calculations LVIDd: 5.1 cm IVSd: 1.1 cm LVOT diam: 2.1 cm LVIDs: 2.8 cm LVPWd: 1.0 cm LVOT area: 3.5 cm2 RVDd: 4.5 cm FS: 45.3 % Ao root diam: 3.7 cm LAV(MOD-bp): 70.7 ml LVAd ap4: 29.9 cm2 LAV(MOD-bp) Indexed: 33.9 ml/m2 LVLd ap4: 8.2 cm LAV(MOD-sp2): 77.2 ml EDV(MOD-sp4): 85.7 ml LAV(MOD-sp4): 63.5 ml EDV(sp4-el): 91.8 ml LVAs ap4: 18.3 cm2 LVLs ap4: 7.0 cm ESV(MOD-sp4): 39.5 ml ESV(sp4-el): 40.8 ml EF(MOD-sp4): 53.8 % EF(sp4-el): 55.6 % LVAd ap2: 35.2 cm2 SV(MOD-sp4): 46.1 ml SV(MOD-sp2): 63.7 ml LVLd ap2: 8.7 cm EDV(MOD-sp2): 115.0 ml EDV(sp2-el): 120.6 ml LVAs ap2: 21.3 cm2 LVLs ap2: 7.2 cm ESV(MOD-sp2): 51.3 ml ESV(sp2-el): 53.2 ml EF(MOD-sp2): 55.4 % SV(sp4-el): 51.1 ml LA dimension(2D): 4.6 cm LA A4 area: 22.2 cm2 RA A4 area: 18.4 cm2 TAPSE: 2.3 cm Time Measurements MV dec time: 0.25 sec Doppler Measurements & Calculations MV E max eduardo: 88.7 cm/sec Lat Peak E' Eduardo: 11.8 cm/sec Med Peak E' Eduardo: 10.0 cm/sec MV A max eduardo: 39.0 cm/sec E/E' lat: 7.5 E/E' med: 8.9 MV E/A: 2.3 Ao V2 max: 179.3 cm/sec LV V1 max: 108.6 cm/sec MV dec slope: 355.6 cm/sec2 Ao max P.0 mmHg LV V1 max P.8 mmHg Ao V2 mean: 116.7 cm/sec LV V1 mean P.0 mmHg Ao mean P.4 mmHg LV V1 mean: 83.0 cm/sec Ao V2 VTI: 36.5 cm LV V1 VTI: 23.2 cm AV (velocity ratio): 0.63 VAISHALI(I,D): 2.2 cm2 VAISHALI(V,D): 2.1 cm2 SV(LVOT): 80.6 ml PA V2 max: 100.2 cm/sec TR max eduardo: 300.4 cm/sec PA max PG (full): 0.66 mmHg TR max P.1 mmHg ECHO/Echo Complete Interpretation Summary The left ventricular ejection fraction is 55 %. Diastolic function is indeterminate. The left atrium is severely enlarged. The right atrium is moderately enlarged. Mild (1+) mitral valve insufficiency. Right ventricular systolic pressure estimated to be 41 mmHg. Aortic sclerosis, no stenosis. Mild (1+) aortic valve insufficiency. Mildly dilated aortic root. Ordering Physician: Segundo Garces Performed By: Sonia Duncan RDCS
== END | disposition home or self-care (01) ==
LOC: CVS 13:48
PROVIDERS: PCP Family Medicine; Visit Provider Internal Medicine Cardiovascular Disease
DX: I34.0 Nonrheumatic mitral (valve) insufficiency (principal)
CPT/HCPCS: 93306

== ENCOUNTER → 2024-05-14 | Outpatient (CLI) | payer MEDICARE, BC, SELFPAY ==
[2024-05-14 10:34] LABS: Hematocrit 40.2 % (40-54); Hemoglobin 13.2 g/dL (13.0-16.5); Mean Corp Hgb Conc 32.8 g/dL (32-36); Mean Corpuscular Hgb 32.4 pg (27.0-32.0); Mean Corpuscular Volume 98.8 fL (80-94); Platelet Count 281 K/mm3 (150-450); RBC Distribution Width CV 13.4 % (11.6-14.6); RBC Distribution Width SD 47.9 fl (35.1-43.9); Red Blood Count 4.07 M/mm3 (4.6-6.2); White Blood Count 6.6 K/mm3 (4.4-11.0)
[2024-05-14 11:18] LABS: AST(SGOT) 22 U/L (15-37); Alanine Aminotransfer ALT/SGPT 26 U/L (16-61); Albumin, Serum 3.7 g/dL (3.2-5.0); Alkaline Phosphatase 69 U/L (45-117); Bilirubin, Direct 0.38 mg/dL (0.00-0.30); Cholesterol 141 mg/dL (200); Globulin 3.5 g/dL (2.2-4.2); High Density Lipoprotein 50 mg/dL; Protein, Total 7.2 g/dL (6.4-8.2); Triglycerides 75 mg/dL; Very Low Density Lipoprotein 15 mg/dL (5-40)
== END | disposition home or self-care (01) ==
LOC: MTLAB 08:04
PROVIDERS: Physician Assistant Medical; PCP Family Medicine; Referring Provider Internal Medicine Cardiovascular Disease; Visit Provider Internal Medicine Cardiovascular Disease
DX: Z79.899 Other long term (current) drug therapy (principal); E78.00 Pure hypercholesterolemia, unspecified
CPT/HCPCS: 36415; 80061; 80076; 85027

== ENCOUNTER → 2024-08-26 | Outpatient (CLI) | payer MEDICARE, BC, SELFPAY ==
[2024-08-26 15:20] LABS: Absolute Lymphocyte Count 1.49 X10^3/uL (0.83-4.51); Absolute Neutrophil Count 4.7 X10^3/uL (2.0-7.7); Basophil# 0.08 X10^3/uL; Basophil% 1.2 % (0-1); Eosinophil# 0.11 X10^3/uL; Eosinophils% 1.6 % (0-5); Hematocrit 37.4 % (40-54); Hemoglobin 12.7 g/dL (13.0-16.5); Lymphocyte # 1.49 X10^3/ul (0.83-4.51); Lymphocyte % 21.7 % (19-41); Mean Corpuscular Hgb 35.3 pg (27.0-32.0); Mean Corpuscular Volume 103.9 fL (80-94); Mean Platelet Vol. 9.9 fl (6.2-12.0); Monocyte% 7.3 % (0-10); NRBC Flagged by Analyzer 0 % (0-5); Neutrophil # 4.67 X10^3/uL (2.7-7.7); Neutrophil % 68.1 % (47-70); POSITIVE COUNT YES; Platelet Count 276 K/mm3 (150-450); RBC Distribution Width CV 13.2 % (11.6-14.6); RBC Distribution Width SD 49.8 fl (35.1-43.9); RET-HE 35.4 pg (30-35); White Blood Count 6.9 K/mm3 (4.4-11.0)
[2024-08-26 15:52] LABS: Erythrocyte Sedimentation Rate 3 mm/hr (0-20)
[2024-08-26 16:03] LABS: Vitamin B12 531 pg/mL (211-911)
[2024-08-26 16:41] LABS: ALB/GLOB Ratio 1.2 RATIO (0.9-2.4); AST(SGOT) 16 U/L (15-37); Alanine Aminotransfer ALT/SGPT 23 U/L (16-61); Albumin, Serum 3.9 g/dL (3.2-5.0); Alkaline Phosphatase 68 U/L (45-117); Anion Gap 7 (5-15); BUN 23 mg/dL (7-18); CRP < 2.90 mg/L (0.0-3.0); Calcium,Total 9.3 mg/dL (8.5-10.1); Chloride 105 mmol/L (98-107); Creatinine, Serum 1.15 mg/dL (0.70-1.30); EST Glomerular Filtration Rate 66 mL/min (>60); Est Glom Filt Rate - Afr Amer 80 mL/min (>60); Ferritin 217 ng/mL (26-388); Globulin 3.2 g/dL (2.2-4.2); Glucose 79 mg/dL (74-106); Iron 97 ug/dL (65-175); Iron Binding Capacity,Total 298 ug/dL (250-450); LDH 214 U/L (87-241); PERCENT IRON SATURATION 32.6 % (15.0-55.0); Potassium 3.5 mmol/L (3.5-5.1); Protein, Total 7.1 g/dL (6.4-8.2); Sodium Level 140 mmol/L (136-145)
[2024-08-28 06:36] LABS: Haptoglobin 112 mg/dL (34-355)
== END | disposition home or self-care (01) ==
PROVIDERS: PCP Family Medicine; Referring Provider Internal Medicine Medical Oncology; Visit Provider Internal Medicine Medical Oncology
DX: D64.9 Anemia, unspecified (principal); E53.8 Deficiency of other specified B group vitamins
CPT/HCPCS: 36415; 80053; 82607; 82728; 82746; 83010; 83540; 83550; 83615; 85025; 85045; 85652; 86140

== ENCOUNTER → 2024-11-18 | Outpatient (CLI) | payer MEDICARE, BC, SELFPAY ==
[2024-11-18 13:24] LABS: AST(SGOT) 16 U/L (15-37); Alanine Aminotransfer ALT/SGPT 22 U/L (16-61); Albumin, Serum 3.8 g/dL (3.2-5.0); Alkaline Phosphatase 65 U/L (45-117); Bilirubin, Direct 0.46 mg/dL (0.00-0.30); Cholesterol 154 mg/dL (200); Globulin 3.6 g/dL (2.2-4.2); High Density Lipoprotein 57 mg/dL; Protein, Total 7.4 g/dL (6.4-8.2); Triglycerides 67 mg/dL; Very Low Density Lipoprotein 13 mg/dL (5-40)
== END | disposition home or self-care (01) ==
LOC: MTLAB 10:26
PROVIDERS: PCP Family Medicine; Referring Provider Physician Assistant Medical; Visit Provider Physician Assistant Medical
DX: E78.00 Pure hypercholesterolemia, unspecified (principal)
CPT/HCPCS: 36415; 80061; 80076

== ENCOUNTER → 2025-07-15 | Outpatient (CLI) | payer MEDICARE, BC, SELFPAY ==
[2025-07-15 10:53] LABS: AST(SGOT) 22 U/L (<=37); Alanine Aminotransfer ALT/SGPT 19 U/L (<=46); Albumin, Serum 4.2 g/dL (3.4-4.8); Alkaline Phosphatase 66 U/L (40-129); Bilirubin, Direct 0.59 mg/dL (0.00-0.30); Cholesterol 138 mg/dL (<=200); Globulin 2.7 g/dL (2.2-4.2); Low Density Lipoprotein Calc. 77 mg/dL; Triglycerides 59 mg/dL; Very Low Density Lipoprotein 12 mg/dL (5-40); cholesterol:hdl ratio screen 2.86
== END | disposition home or self-care (01) ==
LOC: MTLAB 07:52
PROVIDERS: PCP Family Medicine; Referring Provider Physician Assistant Medical; Visit Provider Physician Assistant Medical
DX: E78.00 Pure hypercholesterolemia, unspecified (principal)
CPT/HCPCS: 36415; 80061; 80076